=== PATIENT | female | born 1980 | race Native Hawaiian/Other Pacific Islander ===

== ENCOUNTER 2019-05-16 00:18 | Day surgery (SDC) | payer BC, SELFPAY ==
[2019-05-10 12:46] VITALS: BMI 33.7
--- NOTE | 2019-05-15 17:13 | WPDANESEPP ---
Anes - Eval Pre Procedure Procedure: Colonoscopy Operation Date: 05/16/19 07:30 Proposed Procedures p Screening Colonoscopy - Maulik Pruitt MD Date/Time: 05/15/19 17:13 Surgeon: George Pre Op Diagnosis: Family hx colon polyps Patient Data Age: 38 Gender: F Height: 5 ft 6 in Weight: 95 kg Allergies Allergy/AdvReac Type Severity Reaction Status Date / Time No Known Allergies Allergy Mild Verified 05/10/19 12:42 Home Medications Medication Instructions Recorded Confirmed Type lansoprazole 30 mg capsule,delayed 30 mg PO DAILY 02/15/19 05/10/19 History release multivitamin 1 cap PO DAILY 05/10/19 05/10/19 History Patient hx anesthesia problems: none Family hx anesthesia problems: none PMFSH Past Medical History Medical History Family history of colon cancer Irritable bowel syndrome with diarrhea Obesity Lexi-rectal abscess Surgical History Surgical History Bariatric surgery status H/O adenoidectomy Family History Family History Father Hypertension Grandparent Hypertension Carcinoma of colon Malignant neoplasm of prostate Other Family history of coronary artery disease Social History Social History Smoking status: Never smoker Alcohol intake: current Exam Day of Procedure 05/15/19 17:13
--- NOTE | 2019-05-16 06:39 | P.PNAN_ITS ---
Anes - Eval Final PreProcedure Day of Procedure 05/16/19 06:39 Patient weight: obese Heart: regular rate and rhythm Lungs: clear to auscultation Airway: Mallampati scale class 1 Neurological: alert and oriented Last oral intake: >/= 8 hours ASA classification: II Emergent: no Anesthetic plan: proceed Anesthesia type and monitoring: general GIVS and standard monitoring Informed Consent: The patient's anesthetic plan and its attendant risks and sebastian efits were discussed with the patient/family/POA. Questions were solicited and answers provided to the satisfaction of the patient/family/POA.
[2019-05-16] MEDS: LACTATED RINGERS 1,000 ML 150 ML IV CONT (06:46)
[2019-05-16 06:51] VITALS: BP 115/73; PULSE 57; RESP 16; TEMP 36.5; O2SAT 99; BMI 36.1
--- NOTE | 2019-05-16 07:47 | PM.HPGS ---
History of Present Illness History of Present Illness Consent: Risks, benefits, and alternatives have been discussed and questions answered. Patient agrees to proceed with procedure. Chief complaint: Family hx colon polyps Narrative: Estelle Klein is a 38 year old female here with ibs-d, never had a colonoscopy Review of Systems Constitutional: Constitutional: Denies headache(s) and Denies weakness Eyes: Eyes: Denies blurry vision ENT: Reports Normal hearing present, Denies headache(s) and Denies neck pain Cardiovascular: Cardiovascular: Denies chest pain and Denies dyspnea Respiratory: Respiratory: Denies dyspnea Gastrointestinal: Gastrointestinal: Reports no additional gastrointestinal complaints Genitourinary: Genitourinary: Denies dysuria Musculoskeletal: Musculoskeletal: Denies neck pain Integumentary/Breasts: Skin/Breast: Denies dry skin Neurologic: Reports Normal hearing present, Denies headache(s) and Denies weakness Psychiatric: Psychiatric: Denies anxiety Endocrine: Endocrine: Denies change in body appearance Hematologic/Lymphatic: Hematologic/Lymphatic: Denies easy bleeding Allergic/Immunologic: Allergic/Immunologic: Denies urticaria PMFSH Past Medical History Medical History Family history of colon cancer Irritable bowel syndrome with diarrhea Obesity Lexi-rectal abscess Surgical History Surgical History Bariatric surgery status H/O adenoidectomy Family History Family History Father Hypertension Grandparent Hypertension Carcinoma of colon Malignant neoplasm of prostate Other Family history of coronary artery disease Social History Social History Smoking status: Never smoker Alcohol intake: current Meds Home Medications and Allergies Home Medications Medication Instructions Recorded Confirmed Type lansoprazole 30 mg capsule,delayed 30 mg PO DAILY 02/15/19 05/10/19 History release multivitamin 1 cap PO DAILY 05/10/19 05/10/19 History Allergies Allergy/AdvReac Type Severity Reaction Status Date / Time No Known Allergies Allergy Mild Verified 05/10/19 12:42 Vital Signs Vital Signs - 24 hr 05/16/19 06:51 Temperature 97.7 F Pulse Rate 57 L Respiratory Rate 16 Blood Pressure 115/73 Pulse Oximetry 99 Exam Const: General: comfortable and no acute distress HENMT: General nose exam: Normal nares present Eyes: General: appearance normal, both eyes and all related structures Neck: Neck: no JVD Resp: Auscultation: clear to auscultation bilaterally Cardio: Rate: regular rate Rhythm: regular rhythm GI: Inspection: non-distended GI Palp: Yes Soft to palpation Skin: General skin exam: normal color Neuro: General: gait normal Speech: normal speech Extrem: General: normal to inspection Psych: Mental Status: mental status grossly normal Assessment and Plan Assessment and plan (1) Family history of colon cancer: Code(s): Z80.0 - Family history of malignant neoplasm of digestive organs Status: Acute Assessment and Plan: will proceed with colonoscopy (2) Irritable bowel syndrome with diarrhea: Code(s): K58.0 - Irritable bowel syndrome with diarrhea Status: Acute (3) Bariatric surgery status: Code(s): Z98.84 - Bariatric surgery status Status: Acute
[2019-05-16 07:52] VITALS: BP 111/68; PULSE 55; RESP 28; O2SAT 97
[2019-05-16 08:02] VITALS: BP 115/68; PULSE 59; RESP 19; O2SAT 98
[2019-05-16 08:12] VITALS: BP 112/78; PULSE 54; RESP 22; O2SAT 100
== END 2019-05-16 08:14 | disposition home or self-care (01) ==
PROVIDERS: PCP Family Medicine; Visit Provider Internal Medicine Gastroenterology
PROC: 0DJD8ZZ Inspection of Lower Intestinal Tract, Via Natural or Artificial Opening Endoscopic (ICD-10-PCS; CPT 45378; principal; 2019-05-16 07:30)
DX: K58.0 Irritable bowel syndrome with diarrhea (principal); D12.4 Benign neoplasm of descending colon; Z80.0 Family history of malignant neoplasm of digestive organs; Z98.84 Bariatric surgery status; E66.9 Obesity, unspecified; Z68.36 Body mass index [BMI] 36.0-36.9, adult
CPT/HCPCS: 45380; 88305; J2704; J7120

== ENCOUNTER 2020-07-12 09:37 | Outpatient (CLI) | payer OTHER, SELFPAY ==
--- NOTE | 2020-07-12 09:30 | ECG_ITS ---
Measurements Intervals Jeff Rate: 55 P: 53 MA: 134 QRS: 24 QRSD: 98 T: 29 QT: 382 QTc: 368 Interpretive Statements SINUS BRADYCARDIA INCOMPLETE RIGHT BUNDLE BRANCH BLOCK BASELINE ARTIFACT- I, II, III, AVR, AVL, AVF, V4-V6 BORDERLINE ECG Electronically Signed On 07-12-2020 12:06:18 CDT by Kana Luis D.O.
[2020-07-12 10:09] LABS: Albumin Level 4.3 g/dL (3.5-5.1)
[2020-07-12 10:19] LABS: Prealbumin 32.1 mg/dL (17.6-36.0)
[2020-07-12 10:43] LABS: Iron 103 ug/dL (37-170)
[2020-07-19 09:37] LABS: Vitamin B1 29 nmol/L (8-30)
== END 2020-07-12 09:38 | disposition home or self-care (01) ==
LOC: ANHSURGERY 09:38
PROVIDERS: Anesthesiology; PCP Family Medicine; Visit Provider Surgery Plastic and Reconstructive Surgery
DX: Z41.9 Encounter for procedure for purposes other than remedying health state, unspecified (principal); Z98.84 Bariatric surgery status; I45.10 Unspecified right bundle-branch block
CPT/HCPCS: 36415; 82040; 83540; 84134; 84425; 85014; 85018; 93005

== ENCOUNTER → 2020-07-16 04:01 | Outpatient (CLI) | payer OTHER, SELFPAY ==
[2020-07-16 19:03] LABS: SARS-CoV-2 RNA PCR Negative
== END ==
PROVIDERS: PCP Family Medicine; Visit Provider Surgery Plastic and Reconstructive Surgery
DX: Z01.812 Encounter for preprocedural laboratory examination (principal); Z20.822 Contact with and (suspected) exposure to COVID-19
CPT/HCPCS: C9803; U0003; U0005

== ENCOUNTER 2020-07-20 19:27 | Observation (INO) | payer OTHER, SELFPAY ==
[2020-07-04 13:55] VITALS: BMI 27.3
[2020-07-19] VITALS (12 sets, daily range): BP systolic 98–124; BP diastolic 44–73; PULSE 54–82; RESP 16–20; TEMP 36.3–37.5; O2SAT 97–100
[2020-07-19] MEDS: LACTATED RINGERS 1,000 ML 30 ML IV CONT ×2 (06:38→15:01)
[2020-07-19 06:46] LABS: Urine Cotinine NEGATIVE
--- NOTE | 2020-07-19 07:00 | WPDANESEPPF ---
Anes - Initial Pre Proc Eval Procedure: Operation Date: 07/19/20 07:30 Proposed Procedures p Bilateral Breast Augmentation - Ronnie Mosquera MD s Bilateral Breast Mastopexy - Ronnie Mosquera MD s Bilateral Brachioplasty - Ronnie Mosquera MD s Abdominoplasty - Ronnie Mosquera MD Date/Time: 07/19/20 07:00 Surgeon: Ronnie Mosquera MD Pre Op Diagnosis: Skin Laxity Patient Data Age: 39 Gender: F Height: 5 ft 6 in Weight: 77 kg Allergies Allergy/AdvReac Type Severity Reaction Status Date / Time No Known Allergies Allergy Mild Verified 07/04/20 13:53 Home Medications Medication Instructions Recorded Confirmed Type naltrexone 8 mg-bupropion 90 mg 2 tablet PO BID #360 tablet 06/14/20 07/04/20 Rx tablet,extended release carisoprodol 350 mg tablet 350 mg PO TID PRN #21 tablet 07/04/20 07/04/20 Rx docusate sodium 100 mg capsule 100 mg PO DAILY #14 cap 07/04/20 07/04/20 Rx multivitamin 1 tablet PO DAILY 07/04/20 07/04/20 History ondansetron HCl [Zofran] 4 mg PO Q8H PRN 07/04/20 07/04/20 History oxycodone-acetaminophen 5 mg-325 1 tablet PO Q6H PRN #15 tablet 07/04/20 07/04/20 Rx mg tablet esomeprazole magnesium 20 mg 20 mg PO DAILY #90 cap 07/15/20 Rx capsule,delayed release Laboratory Tests 07/19/20 06:28 Cotinine Negative Patient hx anesthesia problems: none Family hx anesthesia problems: none PMFSH Past Medical History Medical History Arthralgia of temporomandibular joint, unspecified side BMI 27.0-27.9,adult Dietary counseling and surveillance (10/01/16) Cristy Blas infection Family history of colon cancer Irritable bowel syndrome with diarrhea Low vitamin B12 level Low vitamin D level Obesity Lexi-rectal abscess Pre-operative clearance Vaginal discharge Surgical History Surgical History Bariatric surgery status H/O adenoidectomy Family History Family History Father Hypertension Grandparent Hypertension Carcinoma of colon Malignant neoplasm of prostate Mother No problems noted. Sibling No problems noted. Other Family history of coronary artery disease Social History Social History Years smoked: 20 Smoking status: Former smoker Tobacco type: cigarettes Second hand tobacco smoke exposure: No Smoking end date: 04/12/20 Alcohol intake: current Alcohol use details: TWICE/MONTH Substance use: never Substance use type: does not use Living arrangements: with family Additional occupation/education comments: provider Gender identity (if verbalized by the patient): Female Spiritual care concerns: No Anes - Eval Final PreProcedure Day of Procedure 07/19/20 07:00 Patient weight: obese Heart: regular rate and rhythm Lungs: clear to auscultation Airway: Mallampati scale class II Neurological: alert and oriented Last oral intake: >/= 8 hours ASA classification: II Emergent: no Anesthetic plan: proceed Anesthesia type and monitoring: general ETT and standard monitoring Informed Consent: The patient's anesthetic plan and its attendant risks and benefits were discussed with the patient/family/POA. Questions were solicited and answers provided to the satisfaction of the patient/family/POA.
--- NOTE | 2020-07-19 07:24 | WPDHPUPDATE1 ---
History and Physical Update Update Date/Time: 07/19/20 07:24 History and Physical has been reviewed, including an updated exam of the patient. There are NO changes in the patient's condition. Risks, benefits, and alternatives have been discussed and questions answered. Patient agrees to proceed with procedure.
--- NOTE | 2020-07-19 07:26 | PM.PROC ---
Procedure Note - Detailed Date of procedure: 07/19/20 Pre-op diagnosis: Skin Laxity Post-op diagnosis: same Procedure performed: 1. Bilateral brachioplasty 2. Bilateral augmentation mastopexy 3. Progressive tension abdominoplasty Description of procedure: Risks, benefits, alternatives were discussed in extensive detail. I want her to be very realistic about the risks involved as well as expectations. Made sure answered all of her questions to her satisfaction. I had a lengthy discussion about what we could and could not accomplish. Discussed DVT prophylaxis options. Discussed aftercare. Answered all of her questions to her satisfaction. She voiced understanding. She would like proceed. She was marked in the preoperative holding area in a standing position with her verification. Taken operating room on a table. Anesthesia was provided by anesthesiology and prepped and draped in a standard sterile fashion. Brachioplasty I verified my markings. Stab incisions were made. I used a tumescent solution tumesced the arm. Once adequate time for hemostasis I completed suction lipectomy using a modification of S.A.F.E. technique. I completely deep fat of the central portion and then using a cut as you go strip avulsion technique I removed the tissue stapling as we proceeded. This was closed using 2-0 Vicryl followed by 3-0 strata fix in a running subcuticular 4-0 Monocryl and Steri-Strips.. Augmentation mastopexy 1% lidocaine and 0.25% Marcaine with epinephrine was used anesthetize as a field block. Tegaderm nipple Cabrales were placed. A 15 blade used to make an incision just sueprior to the inframammary fold leave a de-epithelialized flap of tissue that would ultimately protect the T junction if there is breakdown. Dissection was continued at 45 degree angle until the chest wall as identified. I incised the pectoralis major along its inferior border and completely released the inferior border leaving the medial border intact. I created a subpectoral pocket in the appropriate dimensions based on our preoperative planning for the implant. I then copiously irrigated with saline solution and verified a strict hemostasis. Next the use a triple antibiotic and Betadine containing solution to irrigate the pocket. I washed my gloves with the triple antibiotic and Betadine solution. We washed the implant immediately upon opening it with this solution and only opened it when we needed it. I used implant funnel and no-touch technique. The implant was introduced into the pocket using the funnel. Having verified positioning of the implant this was closed using 2-0 Vicryl. I then tailor tacked the breast into place and placed her in a sitting position. Based on my preoperative markings intraoperative observations and measurements which were in full agreement I placed the nipple-areolar complex at 38 mm. Then placed supine. I de-epithelialized the superior pedicle. Resected the central tissue. I elevated medial and lateral mastopexy flaps with good thickness to protect viability. I copiously irrigated and verified strict hemostasis. I then closed using 2-0 PDS along the vertical and the IMF. This is followed by 3-0 Monocryl around the areola and vertically. 3-0 strata fix along the IMF. Final closure was running subcuticular 4-0 Monocryl and tissue glue. Abdominoplasty We had previously discussed just a transverse lower incision verses a [id number]. She understands with just a low transverse incision she will have a degree of lateral laxity. She is willing to accept this rather than the vertical scar. I placed the patient in a flexed position to verify the upper and lower markings would reach. I then placed her supine. A thorough abdominal examination was completed. Stab incisions were made and used tumescent solution. A 10 blade was used to make the upper incision. I continued dissection down to the level of fascia. Elevated just what was necessary for r
[2020-07-19] MEDS: LIDO 1%/EPINEPHRINE 1:100,000 50 ML VIAL 30 ML INFILTRATE (07:30)
[2020-07-19] MEDS: ceFAZolin 2 GM/D5W 50 ML 2 GM/50 ML BAG IVPB (07:30)
[2020-07-19] MEDS: ceFAZolin SODIUM 1 GM VIAL IV PUSH (11:37)
--- NOTE | 2020-07-19 12:32 | SUR.OPER ---
CHECKED OUT OF PYXSIS 100MCG FENTANYL FOR THIS PATIENT AND GIVEN TO DR. COLBY
--- NOTE | 2020-07-19 14:34 | SUR.OPER ---
urine:375cc, EBL:100cc
--- NOTE | 2020-07-19 14:44 | SUR.OPER ---
checked 1 dilaudid out of pyxsis for this patient and gave to pieter emmanuel decal decorator
[2020-07-19] MEDS: fentaNYL CITRATE INJ (*CRX) 100 MCG/2 ML VIAL 25 MCG IV PUSH ×4 (15:18→15:42)
--- NOTE | 2020-07-19 15:31 | SUR.PHASEI ---
02 removed at 1530.
[2020-07-19] MEDS: HYDROmorphone HCL INJ (*CRX) 1 MG/ML SYR 0.5 MG IV PUSH ×2 (16:10→16:27)
--- NOTE | 2020-07-19 16:47 | PC.NURSE ---
This patient, Estelle Klein, was received from PACU on 07/19/20 at 1647 per bed. Patient oriented to unit policies and routines
--- NOTE | 2020-07-19 16:47 | PC.NURSE ---
Pt came to OB2 room 277 with abdominal binder and surgical bra intact.
[2020-07-19] MEDS: LACTATED RINGERS 1,000 ML 125 ML IV CONT (17:41)
[2020-07-19] MEDS: carisoprodoL (*CRX) 350 MG TABLET PO ×2 (17:42→23:51)
[2020-07-19] MEDS: MORPHINE SULFATE (*CRX) 2 MG/ML INJ IV PUSH (17:42)
[2020-07-19] MEDS: DOCUSATE SODIUM 100 MG CAPSULE PO (20:14)
[2020-07-19] MEDS: oxyCODONE/ACETAMINOPHEN (*CRX) 5-325 MG TABLET PO (20:14)
[2020-07-19] MEDS: ENOXAPARIN 40 MG/0.4 ML SYRINGE SUB-Q (20:16)
[2020-07-20] VITALS (62 sets, daily range): BP systolic 74–123; BP diastolic 28–57; PULSE 82–121; RESP 16–20; TEMP 36.4–37.3; O2SAT 93–100
[2020-07-20] MEDS: oxyCODONE/ACETAMINOPHEN (*CRX) 5-325 MG TABLET PO ×4 (02:01→22:58)
[2020-07-20] MEDS: SIMETHICONE 80 MG TAB.CHEW ×3 (03:48→09:00)
[2020-07-20] MEDS: LACTATED RINGERS 1,000 ML 999 ML IV CONT (05:05)
[2020-07-20] MEDS: LACTATED RINGERS 1,000 ML 125 ML IV CONT ×3 (06:11→15:30)
[2020-07-20] MEDS: carisoprodoL (*CRX) 350 MG TABLET PO ×4 (06:12→23:54)
--- NOTE | 2020-07-20 06:47 | WPDPN ---
Progress Note: A&P Assessment and Plan (1) Skin laxity: Code(s): L57.4 - Cutis laxa senilis Status: Acute Assessment and Plan: Postop bilateral brachioplasty, augmentation mastopexy, abdominoplasty. She is having a degree of lightheadedness with pain. Also having decreased blood pressure. Will restart Gaytan catheter for fluid monitoring. Continue fluids. I see no evidence of DVT or PE. No evidence of cardiac event. No evidence of hematoma or other sites of bleeding. Will follow closely. (2) Breast ptosis: Code(s): N64.81 - Ptosis of breast Status: Acute (3) Micromastia: Code(s): N64.82 - Hypoplasia of breast Status: Acute (4) History of weight loss surgery: Code(s): Z98.84 - Bariatric surgery status Status: Acute (5) Irritable bowel syndrome with diarrhea: Code(s): K58.0 - Irritable bowel syndrome with diarrhea Status: Acute (6) GERD (gastroesophageal reflux disease): Code(s): K21.9 - Gastro-esophageal reflux disease without esophagitis Status: Acute Review of Systems Review of Systems: All systems reviewed & are unremarkable except as noted in HPI and below Exam Narrative: Exam Narrative: She has good color. Is alert. Oriented. Answering questions appropriately. Appears uncomfortable. Bilateral breasts are soft. No signs of infection. No hematoma. No seroma. Good color. Good capillary refill. Bilateral arms are soft. No signs of infection. No hematoma. No seroma good color. Good capillary refill. Abdomen is soft. No signs of infection. No hematoma. No seroma. Good color. Good capillary refill. No calf tenderness. Negative Homans. No evidence of acute abdomen. No rebound tenderness. Const: General: comfortable, no acute distress, alert and awake; No acute distress Orientation/consciousness: oriented to person HENMT: Head: normal to inspection Ears: external ears normal General nose exam: Normal external nose present Face and sinus: normal facial exam Eyes: General: appearance normal, both eyes and all related structures Periorbital: periorbital findings normal Eyelids: eyelids normal Conjunctivae: conjunctivae normal Neck: Neck: normal visual inspection Chest: Chest palpation & inspection: normal inspection of the chest Resp: Effort & Inspection: normal respiratory effort and able to speak in complete sentences GI: Inspection: normal to inspection Neuro: General: oriented to person Psych: Appearance: grossly normal Mental Status: mental status grossly normal Objective Data Vital Signs Vital Signs: Vital Signs - 24 hr 07/19/20 07:00 07/19/20 15:01 07/19/20 15:15 Temperature 36.3 C L 36.4 C Pulse Rate 72 82 64 Respiratory Rate 16 20 18 Blood Pressure 120/73 98/59 L Pulse Oximetry 99 100 100 07/19/20 15:30 07/19/20 15:45 07/19/20 16:00 Temperature Pulse Rate 58 L 61 54 L Respiratory Rate 18 18 19 Blood Pressure 114/63 121/55 L 111/51 L Pulse Oximetry 100 100 100 07/19/20 16:15 07/19/20 16:30 07/19/20 16:55 Temperature 36.3 C L Pulse Rate 54 L 55 L 55 L Respiratory Rate 19 16 18 Blood Pressure 117/57 L 122/56 L 124/44 L Pulse Oximetry 98 100 100 07/19/20 17:45 07/19/20 20:10 07/19/20 23:45 Temperature 37.1 C 37.5 C 36.9 C Pulse Rate 75 71 Respiratory Rate 16 18 Blood Pressure 122/59 L 119/53 L Pulse Oximetry 100 97 07/20/20 03:20 07/20/20 03:30 07/20/20 03:45 Temperature 36.8 C Pulse Rate 83 95 90 Respiratory Rate 16 16 18 Blood Pressure 85/43 L 95/42 L 103/41 L Pulse Oximetry 96 97 97 07/20/20 04:00 07/20/20 05:10 07/20/20 05:13 Temperature 36.4 C Pulse Rate 85 95 90 Respiratory Rate 18 16 Blood Pressure 106/57 L 86/38 L 79/35 L Pulse Oximetry 98 96 97 07/20/20 05:15 07/20/20 05:20 07/20/20 05:30 Temperature Pulse Rate 90 92 82 Respiratory Rate 16 Blood Pressure 83/30 L 90/37 L 94/32 L Pulse Oximetry 97 96 98
--- NOTE | 2020-07-20 07:18 | WPDPN ---
Progress Note: A&P Assessment and Plan (1) Skin laxity: Code(s): L57.4 - Cutis laxa senilis Status: Acute Assessment and Plan: Postop bilateral brachioplasty, augmentation mastopexy, abdominoplasty. She is responding to fluid (symptoms resolving as well as blood pressure improving). Will continue Gaytan and fluid for the next few hours and re-evaluate. If she continues to do well and is tolerating diet will discontinue Gaytan later this morning as well as Hep-Lock fluids. Re-evaluate for discharge later today. (2) Breast ptosis: Code(s): N64.81 - Ptosis of breast Status: Acute (3) Micromastia: Code(s): N64.82 - Hypoplasia of breast Status: Acute (4) History of weight loss surgery: Code(s): Z98.84 - Bariatric surgery status Status: Acute (5) Irritable bowel syndrome with diarrhea: Code(s): K58.0 - Irritable bowel syndrome with diarrhea Status: Acute (6) GERD (gastroesophageal reflux disease): Code(s): K21.9 - Gastro-esophageal reflux disease without esophagitis Status: Acute Review of Systems Review of Systems: All systems reviewed & are unremarkable except as noted in HPI and below Exam Narrative: Exam Narrative: Dressings were adjusted. She has good color. Is alert. Oriented. Answering questions appropriately. Appears uncomfortable. Bilateral breasts are soft. No signs of infection. No hematoma. No seroma. Good color. Good capillary refill. Bilateral arms are soft. No signs of infection. No hematoma. No seroma good color. Good capillary refill. Abdomen is soft. No signs of infection. No hematoma. No seroma. Good color. Good capillary refill. No calf tenderness. Negative Homans. No evidence of acute abdomen. No rebound tenderness. Objective Data Vital Signs Vital Signs: Vital Signs - 24 hr 07/19/20 15:01 07/19/20 15:15 07/19/20 15:30 Temperature 36.4 C Pulse Rate 82 64 58 L Respiratory Rate 20 18 18 Blood Pressure 98/59 L 114/63 Pulse Oximetry 100 100 100 07/19/20 15:45 07/19/20 16:00 07/19/20 16:15 Temperature Pulse Rate 61 54 L 54 L Respiratory Rate 18 19 19 Blood Pressure 121/55 L 111/51 L 117/57 L Pulse Oximetry 100 100 98 07/19/20 16:30 07/19/20 16:55 07/19/20 17:45 Temperature 36.3 C L 37.1 C Pulse Rate 55 L 55 L Respiratory Rate 16 18 Blood Pressure 122/56 L 124/44 L Pulse Oximetry 100 100 07/19/20 20:10 07/19/20 23:45 07/20/20 03:20 Temperature 37.5 C 36.9 C 36.8 C Pulse Rate 75 71 83 Respiratory Rate 16 18 16 Blood Pressure 122/59 L 119/53 L 85/43 L Pulse Oximetry 100 97 96 07/20/20 03:30 07/20/20 03:45 07/20/20 04:00 Temperature Pulse Rate 95 90 85 Respiratory Rate 16 18 18 Blood Pressure 95/42 L 103/41 L 106/57 L Pulse Oximetry 97 97 98 07/20/20 05:10 07/20/20 05:13 07/20/20 05:15 Temperature 36.4 C Pulse Rate 95 90 90 Respiratory Rate 16 16 Blood Pressure 86/38 L 79/35 L 83/30 L Pulse Oximetry 96 97 97 07/20/20 05:20 07/20/20 05:30 07/20/20 05:45 Temperature Pulse Rate 92 82 86 Respiratory Rate Blood Pressure 90/37 L 94/32 L 107/40 L Pulse Oximetry 96 98 95 07/20/20 06:00 Temperature Pulse Rate 95 Respiratory Rate 16 Blood Pressure 113/43 L Pulse Oximetry 97 Intake/Output Intake/Output: Intake & Output 07/17/20 07/18/20 07/19/20 07/20/20 23:59 23:59 23:59 23:59 Intake Total 1999 1700 Output Total 1000 Balance 1000 1700 Meds/Results Medications: Active Medications Generic Name Dose Route Start Last Admin Trade Name Freq PRN Reason Stop Dose Admin Carisoprodol 350 mg 07/19/20 18:00 07/20/20 06:12 Carisoprodol (*Crx) 350 Mg Tablet PO 350 mg Q6HR JULEE Administration Docusate Sodium 100 mg 07/19/20 21:00 07/19/20 20:14 Docusate Sodium 100 Mg Capsule PO 100 mg Q12HR JULEE Administration Enoxaparin Sodium 40 mg 07/19/20 21:00 07/19/20 20:16 Enoxaparin 40 Mg/0.4 M
--- NOTE | 2020-07-20 07:47 | WPDANESPN ---
Anes - Prog Note Post-Op Date/Time: 07/20/20 07:47 Cardiovascular status: normal Respiratory status: normal Airway patency: baseline Mental status: baseline Post-Op hydration status: normal Vital Signs: Last Vital Signs Temp 36.4 C 07/20/20 05:10 Pulse 95 07/20/20 06:00 Resp 16 07/20/20 06:00 BP 113/43 L 07/20/20 06:00 Pulse Ox 97 07/20/20 06:00 Pain Score (VAS): 7 I/O: Intake & Output 07/19/20 07/19/20 07/20/20 15:59 23:59 07:59 Intake Total 0 2000 2700 Output Total 100 900 Balance -100 1100 2700 Post-procedural complaints: none Patient Feedback: Patient satisfied with anesthetic care.
[2020-07-20] MEDS: PANTOPRAZOLE 40 MG TABLET PO (08:53)
[2020-07-20] MEDS: KETOROLAC 30 MG/ML VIAL (*BKC) (08:54)
[2020-07-20] MEDS: DOCUSATE SODIUM 100 MG CAPSULE PO ×2 (09:05→22:58)
[2020-07-20] MEDS: ENOXAPARIN 40 MG/0.4 ML SYRINGE SUB-Q (22:58)
[2020-07-21 01:25] VITALS: BP 122/46; PULSE 112; O2SAT 96
[2020-07-21 04:00] VITALS: BP 119/45; PULSE 93; O2SAT 98
[2020-07-21] MEDS: oxyCODONE/ACETAMINOPHEN (*CRX) 5-325 MG TABLET PO ×3 (05:02→17:17)
--- NOTE | 2020-07-21 07:00 | WPDPN ---
Progress Note: A&P Assessment and Plan (1) Skin laxity: Code(s): L57.4 - Cutis laxa senilis Status: Acute Assessment and Plan: Postop bilateral brachioplasty, augmentation mastopexy, abdominoplasty. She is doing much better today. Will discharge home. Follow up later this week. Today we had a lengthy discussion with her and her about the care. Went over what monitor for. Discussed what is an emergency and went to proceed to the ER/dial 911. Explained were available with any other questions. Answered all of their questions. They voiced understanding. I will see them back. (2) Breast ptosis: Code(s): N64.81 - Ptosis of breast Status: Acute (3) Micromastia: Code(s): N64.82 - Hypoplasia of breast Status: Acute (4) History of weight loss surgery: Code(s): Z98.84 - Bariatric surgery status Status: Acute (5) Irritable bowel syndrome with diarrhea: Code(s): K58.0 - Irritable bowel syndrome with diarrhea Status: Acute (6) GERD (gastroesophageal reflux disease): Code(s): K21.9 - Gastro-esophageal reflux disease without esophagitis Status: Acute Review of Systems Review of Systems: All systems reviewed & are unremarkable except as noted in HPI and below Exam Narrative: Exam Narrative: She has good color. Is alert. Oriented. Answering questions appropriately. Appears uncomfortable. Bilateral breasts are soft. No signs of infection. No hematoma. No seroma. Good color. Good capillary refill. Bilateral arms are soft. No signs of infection. No hematoma. No seroma good color. Good capillary refill. Abdomen is soft. No signs of infection. No hematoma. No seroma. Good color. Good capillary refill. No calf tenderness. Negative Homans. No evidence of acute abdomen. No rebound tenderness. Objective Data Vital Signs Vital Signs: Vital Signs - 24 hr 07/20/20 08:05 07/20/20 08:10 07/20/20 08:15 Temperature Pulse Rate 109 H 107 H 101 H Respiratory Rate 18 Blood Pressure 112/44 L 113/31 L 94/35 L Pulse Oximetry 99 99 97 07/20/20 08:20 07/20/20 08:25 07/20/20 08:30 Temperature Pulse Rate 95 90 91 Respiratory Rate Blood Pressure 74/33 L 82/30 L 90/36 L Pulse Oximetry 99 97 99 07/20/20 08:35 07/20/20 08:40 07/20/20 08:45 Temperature Pulse Rate 90 104 H 94 Respiratory Rate Blood Pressure 96/33 L 105/32 L 99/42 L Pulse Oximetry 98 95 99 07/20/20 08:50 07/20/20 08:55 07/20/20 09:00 Temperature Pulse Rate 88 97 104 H Respiratory Rate Blood Pressure 99/42 L 110/39 L 104/33 L Pulse Oximetry 98 98 96 07/20/20 09:05 07/20/20 09:10 07/20/20 09:15 Temperature Pulse Rate 96 100 98 Respiratory Rate Blood Pressure 102/42 L 102/37 L 105/36 L Pulse Oximetry 98 98 98 07/20/20 09:20 07/20/20 09:25 07/20/20 09:30 Temperature Pulse Rate 105 H 101 H 105 H Respiratory Rate Blood Pressure 111/34 L 110/45 L 98/43 L Pulse Oximetry 98 98 98 07/20/20 09:35 07/20/20 09:40 07/20/20 09:45 Temperature Pulse Rate 110 H 108 H 103 H Respiratory Rate Blood Pressure 105/33 L 110/33 L 108/34 L Pulse Oximetry 96 96 93 07/20/20 09:50 07/20/20 09:55 07/20/20 10:00 Temperature Pulse Rate 114 H 111 H 108 H Respiratory Rate Blood Pressure 107/28 L 106/46 L 108/49 L Pulse Oximetry 98 99 93 07/20/20 10:05 07/20/20 10:10 07/20/20 10:15 Temperature Pulse Rate 106 H 106 H 108 H Respiratory Rate Blood Pressure 97/34 L 97/37 L 97/36 L Pulse Oximetry 98 98 99 07/20/20 10:20 07/20/20 10:25 07/20/20 10:30 Temperature Pulse Rate 101 H 107 H 104 H Respiratory Rate Blood Pressure 91/38 L 104/35 L 112/34 L Pulse Oximetry 99 99 96 07/20/20 10:35 07/20/20 10:45 07/20/20 11:00 Temperature Pulse Rate 121 H 104 H 109 H Respiratory Rate Blood Pressure 97/45 L 100/36 L 98/32 L Pulse Oximetry 98 97 97 07/20/20 11:15 07/20/20 11
--- NOTE | 2020-07-21 07:13 | P.DS_ITS ---
DS: Admitting Diagnosis Admitting Diagnosis Admitting Diagnosis: Skin laxity DS: Discharge Diagnosis Discharge Diagnosis (1) Skin laxity: Code(s): L57.4 - Cutis laxa senilis Status: Acute Assessment and Plan: Doing very well after brachioplasty, augmentation mastopexy, progressive tension abdominoplasty. Will discharge home. (2) Breast ptosis: Code(s): N64.81 - Ptosis of breast Status: Acute (3) Micromastia: Code(s): N64.82 - Hypoplasia of breast Status: Acute DS: Summary Hospital Course Hospital Course: Patient underwent brachioplasty, augmentation mastopexy, progressive tension abdominoplasty. Postoperatively she had a degree of symptomatic hypotension. By postoperative day 2 her symptoms had improved. She was doing very well. Ambulating. Pain controlled. Blood pressure controlled. No additional episodes of lightheadedness. Will discharge home. Follow-up. Time Spent with Patient Time attestation: Total time spent providing and/or coordinating discharge services: 25 minutes Exam Narrative: Exam Narrative: She has good color. Is alert. Oriented. Answering questions appropriately. Appears uncomfortable. Bilateral breasts are soft. No signs of infection. No hematoma. No seroma. Good color. Good capillary refill. Bilateral arms are soft. No signs of infection. No hematoma. No seroma good color. Good capillary refill. Abdomen is soft. No signs of infection. No hematoma. No seroma. Good color. Good capillary refill. No calf tenderness. Negative Homans. No evidence of acute abdomen. No rebound tenderness. Discharge Plan Discharge Discharging Clinician: Ronnie Mosquera Anticipated Discharge Date/Time: 07/21/20 07:05 Patient Disposition: Home, Self-Care Activity: may shower Diet: regular Wound Care Instructions: other - see discharge instructions Discharge Instructions: POST OPERATIVE DISCHARGE INSTRUCTIONS: RONNIE MOSQUERA M.D. [facility] [address] [place] [address] * No driving for 24 hours after anesthesia and while you are taking pain medication. * Take all prescribed medication as directed * Diet as tolerated. * Begin gentle shoulder rolls and arm stretches 10 times per hour. * No lifting or activity that raises blood pressure for 48 hours. * Regular walking / ambulation. * No showering until directed to. * No pools or tubs for 2 weeks. * Call with any questions or concerns. * Slowly stand up straight as tolerated over 1 week. * No straining or lifting more than 20 pounds for 6 weeks. * You may shower. Do not take pain medication before showering as the comb ination of medication and heat may cause you to feel dizzy or pass out. Let soap and water run over your incisions. Do not scrub or directly wash your incision. Replace the surgical bra and wear it 23 hours per day. Replace binder and compression and wear 23 hours per day. If you have any questions or concerns, please call the office . If it is after hours you will be directed to the philosophy and religion instructor exchange. Shortness of breath, chest pain, or other medical emergency dial 911 / proceed to the Emergency Room. Stand Alone Forms: General Discharge Instructions
--- NOTE | 2020-07-21 07:13 | PM.DS ---
DS: Admitting Diagnosis Admitting Diagnosis Admitting Diagnosis: Skin laxity DS: Discharge Diagnosis Discharge Diagnosis (1) Skin laxity: Code(s): L57.4 - Cutis laxa senilis Status: Acute Assessment and Plan: Doing very well after brachioplasty, augmentation mastopexy, progressive tension abdominoplasty. Will discharge home. (2) Breast ptosis: Code(s): N64.81 - Ptosis of breast Status: Acute (3) Micromastia: Code(s): N64.82 - Hypoplasia of breast Status: Acute DS: Summary Hospital Course Hospital Course: Patient underwent brachioplasty, augmentation mastopexy, progressive tension abdominoplasty. Postoperatively she had a degree of symptomatic hypotension. By postoperative day 2 her symptoms had improved. She was doing very well. Ambulating. Pain controlled. Blood pressure controlled. No additional episodes of lightheadedness. Will discharge home. Follow-up. Time Spent with Patient Time attestation: Total time spent providing and/or coordinating discharge services: 25 minutes Exam Narrative: Exam Narrative: She has good color. Is alert. Oriented. Answering questions appropriately. Appears uncomfortable. Bilateral breasts are soft. No signs of infection. No hematoma. No seroma. Good color. Good capillary refill. Bilateral arms are soft. No signs of infection. No hematoma. No seroma good color. Good capillary refill. Abdomen is soft. No signs of infection. No hematoma. No seroma. Good color. Good capillary refill. No calf tenderness. Negative Homans. No evidence of acute abdomen. No rebound tenderness. Discharge Plan Discharge Discharging Clinician: Ronnie Mosquera Anticipated Discharge Date/Time: 07/21/20 07:05 Patient Disposition: Home, Self-Care Activity: may shower Diet: regular Wound Care Instructions: other - see discharge instructions Discharge Instructions: POST OPERATIVE DISCHARGE INSTRUCTIONS: RONNIE MOSQUERA M.D. [facility] [address] [place] [address] No driving for 24 hours after anesthesia and while you are taking pain medication. Take all prescribed medication as directed Diet as tolerated. Begin gentle shoulder rolls and arm stretches 10 times per hour. No lifting or activity that raises blood pressure for 48 hours. Regular walking / ambulation. No showering until directed to. No pools or tubs for 2 weeks. Call with any questions or concerns. Slowly stand up straight as tolerated over 1 week. No straining or lifting more than 20 pounds for 6 weeks. You may shower. Do not take pain medication before showering as the combination of medication and heat may cause you to feel dizzy or pass out. Let soap and water run over your incisions. Do not scrub or directly wash your incision. Replace the surgical bra and wear it 23 hours per day. Replace binder and compression and wear 23 hours per day. If you have any questions or concerns, please call the office . If it is after hours you will be directed to the reconciliation machine operator exchange. Shortness of breath, chest pain, or other medical emergency dial 911 / proceed to the Emergency Room. Stand Alone Forms: General Discharge Instructions Follow-up/Referrals: Ronnie Mosquera MD [Physician] - 1 Week Discharge Medications: New carisoprodol 350 mg Tablet 350 mg PO Q6HR Qty: 15 RF: 0 oxycodone-acetaminophen 5-325 mg Tablet 1 - 2 tablet PO Q6H PRN (Reason: Pain) Qty: 15 RF: 0 docusate sodium 100 mg Capsule 100 mg PO Q12HR Qty: 30 RF: 0 ondansetron HCl (PF) 4 mg/2 mL Solution 4 mg IV PUSH Q6H PRN (Reason: Nausea) Qty: 30 RF: 0 Continued multivitamin Tablet 1 tablet PO DAILY RF: 0 esomeprazole magnesium [Nexium 24HR] 20 mg capsule,delayed release(DR/EC) 20 mg PO DAILY Qty: 90 RF: 1 Discontinued docusate sodium [Colace] 100 mg capsule
[2020-07-21 09:15] VITALS: BP 119/42; PULSE 108; RESP 18; TEMP 37.2; O2SAT 98
[2020-07-21] MEDS: DOCUSATE SODIUM 100 MG CAPSULE PO (09:55)
[2020-07-21] MEDS: carisoprodoL (*CRX) 350 MG TABLET PO ×2 (09:55→16:06)
[2020-07-21 10:59] VITALS: BP 125/40; PULSE 111; RESP 18; TEMP 37.3; O2SAT 97
[2020-07-21] MEDS: PANTOPRAZOLE 40 MG TABLET PO (16:06)
--- NOTE | 2020-07-21 20:34 | PC.NURSE ---
1734 Dr. Mosquera called, message left and he promptly returned call; advised of pt's more stable condition, able to be up in chair and stand, but still reporting ligh-headedness; also that pt voided 450cc without difficulty, and pain well managed. Pt OK for discharge as ordered; pt to be seen in office on Wednesday, 4-14.
== END 2020-07-21 18:46 | disposition home or self-care (01) ==
LOC: ANHSURGERY 19:30 → ANHOB2 19:30
PROVIDERS: Admitting Provider Surgery Plastic and Reconstructive Surgery; PCP Family Medicine; Visit Provider Surgery Plastic and Reconstructive Surgery
PROC: (CPT 19325; principal; 2020-07-19 07:30)
PROC: (CPT 19316; 2020-07-19 07:30)
PROC: (CPT 15836; 2020-07-19 07:30)
PROC: (CPT 19325; 2020-07-19 07:30)
DX: Z41.1 Encounter for cosmetic surgery (principal); I95.81 Postprocedural hypotension; N64.82 Hypoplasia of breast; N64.81 Ptosis of breast; L57.4 Cutis laxa senilis; Z98.84 Bariatric surgery status; Z87.891 Personal history of nicotine dependence; E66.9 Obesity, unspecified; Z68.27 Body mass index [BMI] 27.0-27.9, adult; K58.0 Irritable bowel syndrome with diarrhea; K21.9 Gastro-esophageal reflux disease without esophagitis; Z79.899 Other long term (current) drug therapy
CPT/HCPCS: 19325; 19316; 15836; 15830; 15847; 80307; 99199; A9270; C9290; G0378; J0171; J0330; J0690; J1100; J1170; J1580; J1650; J1885; J2250; J2270; J2405; J2704; J3010; J7120

== ENCOUNTER 2020-07-22 17:29 | Outpatient (CLI) | payer BC, SELFPAY ==
[2020-07-22 18:20] LABS: Mean Corpuscular Hemoglobin 33.1 pg (26-34); Mean Corpuscular Volume 103.3 fl (80-100); Mean Platelet Volume 11.4 fl (7.4-10.4); Platelet Count Result 119 k/mm3 (150-375); Red Blood Count 1.21 M/mm3 (4.2-5.4); Red Cell Distribution Width 12.6 % (11.5-14.5); White Blood Count 12.2 K/mm3 (4.5-10.0)
[2020-07-22 18:28] LABS: Anion Gap 0 mmol/L (8-16); Blood Urea Nitrogen 12 mg/dL (7-17); Carbon Dioxide 30 mmol/L (22-30); Chloride 104 mmol/L (98-107); Estimated Glomerular Filt Rate > 60; Glucose 107 mg/dL (65-105); Potassium 4.3 mmol/L (3.4-5.0); Sodium 134 mmol/L (137-145)
[2020-07-22 18:48] LABS: Hematocrit 12.5 % (37.0-47.0)
== END 2020-07-22 17:30 | disposition home or self-care (01) ==
LOC: ANHLAB 17:33
PROVIDERS: PCP Family Medicine; Visit Provider Surgery Plastic and Reconstructive Surgery
DX: R42 Dizziness and giddiness (principal)
CPT/HCPCS: 36415; 80048; 85027; 85380

== ENCOUNTER 2020-07-22 19:27 | Observation (INO) | payer BC, SELFPAY ==
[2020-07-22] VITALS (8 sets, daily range): BP systolic 104–127; BP diastolic 51–65; PULSE 101–113; RESP 16–18; TEMP 37.4; O2SAT 97–100
--- NOTE | ~2020-07-22 | CT_ITS ---
EXAMINATION: CT abdomen pelvis w con DATE: 07/22/2020 21:58 INDICATION: Postoperative bleeding after tummy tuck and breast augmentation TECHNIQUE: Computed tomography (CT) of the abdomen and pelvis was performed with 100 cc Omnipaque 350 intravenous contrast. Automated exposure control and iterative reconstruction technique were employe d. Exam dose: 1232.76 mGy-cm total exam DLP. COMPARISON: None. FINDINGS: There is atelectasis at the dependent lung bases, greater on the left, with some left lower lobe air bronchograms. Status post bilateral augmentation mammoplasty with implants posterior to the pectoralis major muscle s and some expected postoperative adjacent subcutaneous emphysema. Normal heart size. No pericardial or pleural effusion. Postoperative change from tummy tuck procedure. There is extensive soft tissue infiltration of the subcutaneous adipose tissues of the abdominal and pelvic corley, extending into the proximal thighs. There are numerous areas of subcutaneous emphysema of left and right anterior and lateral abdominal wall. There is prominent hematoma along the infraumb ilical parasagittal area and particularly along the left anterior and lateral lower abdominal and pel carlos alberto corley, beginning slightly above the level of the left iliac crest. The liver, spleen, gallbladder, bile ducts, pancreas, pancreatic duct, and adrenal glands and kidneys are unremarkable. Normal caliber of the abdominal aorta. No intraperitoneal or retroperitoneal or pe lvic mass lesion or adenopathy or ascites. An IUD is noted within the uterus. Uterus and adnexal area s and urinary bladder are otherwise unremarkable. There is a prominent amount of fecal material in the colon but no evidence of bowel obstruction or in traperitoneal free air. No abnormal fluid collection is noted within the abdomen, retroperitoneum or pelvis. IMPRESSION: Hematoma of the abdominal wall along the midline and particularly the left lower and lat eral abdominal and pelvic corley Extensive soft tissue stranding within subcutaneous tissues of the abdominal and pelvic corley, proxim al thighs; subcutaneous emphysema of the abdominal and pelvic wall Status post tummy tuck procedure Status post bilateral augmentation mammoplasty No abnormal intra-abdominal or pelvic fluid collection. I reviewed the examination in my office with the performing surgeon shortly after completion of the C T abdomen pelvis procedure. Reviewed, dictated and finalized at [facility]. Reviewed, dictated and finalized at [facility]. IMPRESSION: Hematoma of the abdominal wall along the midline and particularly the left lower and lateral abdominal and pelvic corley Extensive soft tissue stranding within subcutaneous tissues of the abdominal an d pelvic corley, proximal thighs; subcutaneous emphysema of the abdominal and pe lvic wall Status post tummy tuck procedure Status post bilateral augmentation mammoplasty No abnormal intra-abdominal or pelvic fluid collection. I reviewed the examination in my office with the performing surgeon shortly aft er completion of the CT abdomen pelvis procedure.
--- NOTE | 2020-07-22 20:07 | ED.GENADULT ---
HPI - General Adult General Chief complaint: Recheck/Abnormal Lab/Rx <Ryley Chávez MD - Last Filed: 07/23/20 10:56> Stated complaint: low blood counts <Ryley Chávez MD - Last Filed: 07/23/20 10:56> Time Seen by Provider: 07/22/20 19:45 <Ryley Chávez MD - Last Filed: 07/23/20 10:56> History of Present Illness HPI narrative: Patient is a 39-year-old female who presents the ER with dizziness and low blood counts. Patient was discharged yesterday after being in the hospital for 2 days status post brachioplasty, abdominoplasty, and breast surgery. Patient is having dizziness when going from sitting to standing. She has extreme exertional shortness of breath without runny nose/sore throat/productive cough. She is afebrile. An outpatient lab draw found that her hemoglobin was 4. She denies any dark black stools that she has not yet had a bowel movement since having her surgery. She has had no hemorrhage from her wounds. She does have bruising extending across her lower abdomen and side around her incision. She reports chronic edema since being hospitalized receiving IV fluid. <Ryley Chávez MD - Last Filed: 07/23/20 10:56> Related Data Home medications: Home Medications Medication Instructions Recorded Confirmed multivitamin [Daily Multi-Vitamin] 1 tablet PO DAILY 07/04/20 07/23/20 <Ryley Chávez MD - Last Filed: 07/23/20 10:56> Allergies/adverse reactions: Allergies Allergy/AdvReac Type Severity Reaction Status Date / Time No Known Allergies Allergy Mild Verified 07/19/20 07:08 <Ryley Chávez MD - Last Filed: 07/23/20 10:56> Review of Systems Review of Systems: All systems reviewed & are unremarkable except as noted in HPI and below <Ryley Chávez MD - Last Filed: 07/23/20 10:56> Constitutional: Constitutional: Denies chills, Reports fatigue, Denies fever(s) and Reports weakness <Ryley Chávez MD - Last Filed: 07/23/20 10:56> ENT: Denies nasal congestion and Denies sore throat <Ryley Chávez MD - Last Filed: 07/23/20 10:56> Cardiovascular: Cardiovascular: Denies chest pain, Reports rapid heart rate (Races when exerting herself) and Denies radiating jaw, neck or arm pain <Ryley Chávez MD - Last Filed: 07/23/20 10:56> Respiratory: Respiratory: Denies cough, Reports dyspnea (With exertion not at rest) and Denies wheezing <Ryley Chávez MD - Last Filed: 07/23/20 10:56> Gastrointestinal: Gastrointestinal: Reports abdominal pain (Postoperative), Reports constipation, Denies diarrhea, Denies nausea and Denies vomiting <Ryley Chávez MD - Last Filed: 07/23/20 10:56> Genitourinary: Genitourinary: Denies nocturia, Denies dysuria and Denies flank pain <Ryley Chávez MD - Last Filed: 07/23/20 10:56> Comments: Malodorous urine that is dark <Ryley Chávez MD - Last Filed: 07/23/20 10:56> [facility] Past Medical History Medical History: Medical History Arthralgia of temporomandibular joint, unspecified side BMI 27.0-27.9,adult Dietary counseling and surveillance (10/01/16) Cristy Blas infection Family history of colon cancer Irritable bowel syndrome with diarrhea Low vitamin B12 level Low vitamin D level Obesity Lexi-rectal abscess Pre-operative clearance Vaginal discharge <Ryley Chávez MD - Last Filed: 07/23/20 10:56> Surgical History Surgical History: Surgical History Bariatric surgery status H/O adenoidectomy <Ryley Chávez MD - Last Filed: 07/23/20 10:56> Family History Family History: Family History (Updated 07/23/20 @ 00:00 by Zehra Brown RN) Father blood cancer Hypertension Malignant neoplasm of prostate Grandparent Carcinoma of colon Hypertension Malignant neoplasm of prostate Mother No problems noted. Sibling No pr
[2020-07-22 20:35] LABS: Basophils Percent Auto 0.2 % (0.2-1.2); Eosinophils Percent Auto 0.1 % (0-4.4); Immature Granulocyte Absolute 0.13 K/mm3 (0.00-0.031); Immature Granulocyte Percent A 1.1 % (0-0.5); Lymphocytes Absolute Auto 1.38 K/mm3 (0.9-3.2); Lymphocytes Percent Auto 11.7 % (18.3-44.2); Mean Corpuscular Hemoglobin 33.6 pg (26-34); Mean Corpuscular Volume 105.2 fl (80-100); Mean Platelet Volume 10.5 fl (7.4-10.4); Monocytes Absolute Auto 0.8 K/mm3 (0.1-0.6); Neutrophils Absolute Auto 9.4 K/mm3 (1.3-6.7); Neutrophils Percent Auto 79.9 % (45.5-73.1); Nucleated Red Blood Cells Perc 0.3 % (0.0-0.2); Platelet Count Result 214 k/mm3 (150-375); Red Blood Count 1.16 M/mm3 (4.2-5.4); Red Cell Distribution Width 12.5 % (11.5-14.5); White Blood Count 11.8 K/mm3 (4.5-10.0)
[2020-07-22 20:40] LABS: Hematocrit 12.2 % (37.0-47.0); Hemoglobin 3.9 g/dL (12.0-15.0)
[2020-07-22 20:46] LABS: INR 0.9; Partial Thromboplastin Time 24.6 SECONDS (22.3-36.8); Prothrombin Time 12.3 Seconds (11.1-14.7)
[2020-07-22] MEDS: fentaNYL CITRATE INJ (*CRX) 100 MCG/2 ML VIAL 50 MCG IV PUSH (21:00)
--- NOTE | 2020-07-22 21:10 | PM.IMHP ---
H&P: HPI History of Present Illness Date/Time: 07/22/20 21:10 She is a very pleasant 39-year-old female who underwent brachioplasty, augmentation mastopexy, and abdominoplasty with me on 07/19/2020. Patient called today that she was having some persistent lightheadedness whenever she was standing or doing activities. Also she took a shower and had a little bit a lightheadedness there. As such ordered labs. Hemoglobin returned as 4. I immediately had her proceed to the emergency room where I met her. She was evaluated by the emergency room staff. Repeat hemoglobin was 3.9. She says she feels a little lightheaded when her heads up but otherwise no shortness of breath. No chest pain. No calf tenderness. She has not noticed any unusual swelling. No additional ecchymoses. CT Scan reviewed in person with radiologist: IMPRESSION: Hematoma of the abdominal wall along the midline and particularly the left lower and lateral abdominal and pelvic corley. No evidence of active bleeding. Chief Complaint: Lightheadedness Review of Systems Review of Systems: All systems reviewed & are unremarkable except as noted in HPI and below Cardiovascular: Cardiovascular: Denies chest pain, Denies chest pain at rest, Denies chest pain with activity, Reports lightheadedness, Denies dyspnea, Denies dyspnea on exertion and Denies orthopnea Respiratory: Respiratory: Denies cough and Denies dyspnea Gastrointestinal: Comments: No bowel movement since surgery. Genitourinary: Genitourinary: Reports no additional female genitourinary complaints Musculoskeletal: Musculoskeletal: Reports no additional musculoskeletal complaints, Denies muscle cramps and Denies numbness Integumentary/Breasts: Skin/Breast: Reports system reviewed and no additional complaints, except as docu Neurologic: Denies behavioral changes, Denies confusion and Denies syncope [facility] Past Medical History Medical History Arthralgia of temporomandibular joint, unspecified side BMI 27.0-27.9,adult Dietary counseling and surveillance (10/01/16) Cristy Blas infection Family history of colon cancer Irritable bowel syndrome with diarrhea Low vitamin B12 level Low vitamin D level Obesity Lexi-rectal abscess Pre-operative clearance Vaginal discharge Surgical History Surgical History Bariatric surgery status H/O adenoidectomy Family History Family History Father Hypertension Grandparent Hypertension Carcinoma of colon Malignant neoplasm of prostate Mother No problems noted. Sibling No problems noted. Other Family history of coronary artery disease Social History Social History Years smoked: 20 Smoking status: Former smoker Tobacco type: cigarettes Second hand tobacco smoke exposure: No Smoking end date: 04/12/20 Alcohol intake: current Substance use: never Substance use type: does not use Additional occupation/education comments: provider Gender identity (if verbalized by the patient): Female Spiritual care concerns: No Meds Home Medications and Allergies Home Medications Medication Instructions Recorded Confirmed Type multivitamin 1 tablet PO DAILY 07/04/20 07/19/20 History esomeprazole magnesium 20 mg 20 mg PO DAILY #90 cap 07/15/20 07/19/20 Rx capsule,delayed release carisoprodol 350 mg PO Q6HR #15 tablet 07/21/20 Rx docusate sodium 100 mg PO Q12HR #30 cap 07/21/20 Rx ondansetron HCl (PF) 4 mg IV PUSH Q6H PRN #30 ml 07/21/20 Rx oxycodone-acetaminophen 1 - 2 tablet PO Q6H PRN #15 tablet 07/21/20 Rx Allergies Allergy/AdvReac Type Severity Reaction Status Date / Time No Known Allergies Allergy Mild Verified 07/19/20 07:08 Vital Signs Vital Signs - 24 hr 07/22/20 19:35 07/22/20 20:2
[2020-07-22 21:36] LABS: Estimated CRCL calculation 99 ml/min; Estimated Glomerular Filt Rate > 60
[2020-07-22 22:16] LABS: Anion Gap -1 mmol/L (8-16); Blood Urea Nitrogen 11 mg/dL (7-17); Calcium 8.8 mg/dL (8.4-10.2); Carbon Dioxide 31 mmol/L (22-30); Chloride 103 mmol/L (98-107); Estimated CRCL calculation 114 ml/min; Estimated Glomerular Filt Rate > 60; Glucose 104 mg/dL (65-105); Potassium 3.8 mmol/L (3.4-5.0); Sodium 133 mmol/L (137-145)
--- NOTE | 2020-07-22 23:32 | PC.NURSE ---
RN verified with MD Mosquera that he wants the patient to placed on a Medical Surgical floor with a hemoglobin of 3.9, stated he felt that she was very stable and only getting symptoms when standing.
[2020-07-23] VITALS (28 sets, daily range): BP systolic 96–122; BP diastolic 45–63; PULSE 84–105; RESP 16–21; TEMP 36.2–37.8; O2SAT 95–99
--- NOTE | 2020-07-23 00:04 | ADMGEN ---
This patient, Estelle Klein, was admitted to [facility] Surg Room 313-01. Patient/family oriented to hospital policies and general routines including ID bracelet, bed and alarms, visiting hours, pain management, procedures, bathroom and other care routines, personal items, smoking policy, room service/diet, and visiting hours. Information on how to activate the Rapid Response Team has been discussed. Patient/Family are encouraged to report perceived risks to care and to ask questions if they do not understand what they are told or what they should do.
[2020-07-23] MEDS: carisoprodoL (*CRX) 350 MG TABLET PO ×5 (00:21→23:48)
[2020-07-23] MEDS: oxyCODONE/ACETAMINOPHEN (*CRX) 5-325 MG TABLET PO ×4 (01:08→21:21)
--- NOTE | 2020-07-23 03:17 | PC.NURSE ---
MD Manzano notified that the patient had temperatures before the blood transfusion started and the most recent temperature is 100.1, stated to order 650mg tylenol once.
[2020-07-23] MEDS: ACETAMINOPHEN 325 MG TABLET 650 MG PO (03:40)
[2020-07-23] MEDS: MORPHINE SULFATE (*CRX) 2 MG/ML INJ IV PUSH ×2 (04:09→20:02)
[2020-07-23] MEDS: TUBING, BLOOD PLUM PUMP TUBING 1 EACH XX (06:45)
--- NOTE | 2020-07-23 07:23 | WPDPN ---
Progress Note: A&P Assessment and Plan (1) Anemia: Qualifiers: Other causes of anemia: acute posthemorrhagic Code(s): D64.9 - Anemia, unspecified Status: Acute Assessment and Plan: She looks much improved today. Asymptomatic. I see no evidence of active bleeding. Will recheck labs. Ambulate today. Will monitor. (2) Skin laxity: Code(s): L57.4 - Cutis laxa senilis Status: Acute Assessment and Plan: Postop bilateral brachioplasty, augmentation mastopexy, abdominoplasty. She is doing much better today. Will discharge home. Follow up later this week. Today we had a lengthy discussion with her and her about the care. Went over what monitor for. Discussed what is an emergency and went to proceed to the ER/dial 911. Explained were available with any other questions. Answered all of their questions. They voiced understanding. I will see them back. (3) Breast ptosis: Code(s): N64.81 - Ptosis of breast Status: Acute (4) Micromastia: Code(s): N64.82 - Hypoplasia of breast Status: Acute (5) History of weight loss surgery: Code(s): Z98.84 - Bariatric surgery status Status: Acute (6) Irritable bowel syndrome with diarrhea: Code(s): K58.0 - Irritable bowel syndrome with diarrhea Status: Acute (7) GERD (gastroesophageal reflux disease): Code(s): K21.9 - Gastro-esophageal reflux disease without esophagitis Status: Acute Review of Systems Review of Systems: All systems reviewed & are unremarkable except as noted in HPI and below Exam Narrative: Exam Narrative: Oral mucosa has significant improvement in color. Bilateral arms are soft. No signs of infection. No hematoma. No seroma. Bilateral breasts are soft. No signs of infection. No hematoma. No seroma. Healing well. Abdomen has minimal ecchymosis. She soft throughout. I am unable to appreciate hematoma on physical exam. No calf tenderness. Negative Homann's Const: General: comfortable, no acute distress, alert and awake; No acute distress Orientation/consciousness: oriented to person HENMT: Head: normal to inspection Ears: external ears normal General nose exam: Normal external nose present Face and sinus: normal facial exam Eyes: General: appearance normal, both eyes and all related structures Periorbital: periorbital findings normal Eyelids: eyelids normal Neck: Neck: normal visual inspection Resp: Effort & Inspection: normal respiratory effort and able to speak in complete sentences Cardio: Jugular venous distension: no JVD Neuro: General: oriented to person Psych: Appearance: grossly normal Mental Status: mental status grossly normal Objective Data Vital Signs Vital Signs: Vital Signs - 24 hr 07/22/20 19:35 07/22/20 20:25 07/22/20 20:30 Temperature 37.4 C Pulse Rate 105 H 113 H 105 H Respiratory Rate 16 16 18 Blood Pressure 127/65 104/53 L 104/51 L Pulse Oximetry 97 100 100 07/22/20 20:45 07/22/20 21:00 07/22/20 21:15 Temperature Pulse Rate 101 H 104 H 103 H Respiratory Rate 16 18 16 Blood Pressure 117/54 L 119/52 L 118/57 L Pulse Oximetry 100 100 100 07/22/20 22:43 07/22/20 23:38 07/23/20 00:00 Temperature Pulse Rate 104 H 104 H 98 Respiratory Rate 18 16 Blood Pressure 115/57 L 117/58 L Pulse Oximetry 100 100 07/23/20 00:24 07/23/20 00:49 07/23/20 01:49 Temperature 37.7 C H 37.4 C 37.4 C Pulse Rate 96 100 105 H Respiratory Rate 16 20 18 Blood Pressure 107/47 L 100/45 L 105/46 L Pulse Oximetry 98 95 95 07/23/20 02:49 07/23/20 03:40 07/23/20 03:49 Temperature 37.8 C H 37.8 C H 37.4 C Pulse Rate 98 97 Respiratory Rate 17 17 Blood Pressure 98/50 L 104/53 L Pulse Oximetry 96 96 07/23/20 04:00 07/23/20 04:13 07/23/20 04:29 Temperature 37.4 C 37.2 C Pulse Rate 95 91 95 Respiratory Rate 16 16 Blood Pressure 107/56 L 110/63 Pulse Oximetry 96 96
[2020-07-23 08:16] LABS: Basophils Percent Auto 0.3 % (0.2-1.2); Eosinophils Percent Auto 0.3 % (0-4.4); Immature Granulocyte Absolute 0.18 K/mm3 (0.00-0.031); Immature Granulocyte Percent A 1.5 % (0-0.5); Lymphocytes Absolute Auto 2.14 K/mm3 (0.9-3.2); Lymphocytes Percent Auto 17.9 % (18.3-44.2); Mean Corpuscular HGB Conc 32.5 g/dl (32-36); Mean Corpuscular Volume 98.5 fl (80-100); Mean Platelet Volume 9.6 fl (7.4-10.4); Monocytes Percent Auto 8.7 % (2.6-8.5); Neutrophils Absolute Auto 8.5 K/mm3 (1.3-6.7); Neutrophils Percent Auto 71.3 % (45.5-73.1); Nucleated Red Blood Cells Perc 0.2 % (0.0-0.2); Platelet Count Result 209 k/mm3 (150-375); Red Blood Count 2.03 M/mm3 (4.2-5.4); Red Cell Distribution Width 14.6 % (11.5-14.5)
[2020-07-23 08:17] LABS: Hemoglobin 6.5 g/dL (12.0-15.0)
[2020-07-23 08:21] LABS: Anion Gap -1 mmol/L (8-16); Blood Urea Nitrogen 10 mg/dL (7-17); Calcium 9.1 mg/dL (8.4-10.2); Carbon Dioxide 33 mmol/L (22-30); Chloride 104 mmol/L (98-107); Estimated CRCL calculation 99 ml/min; Estimated Glomerular Filt Rate > 60; Glucose 86 mg/dL (65-105); Potassium 4.1 mmol/L (3.4-5.0); Sodium 136 mmol/L (137-145)
[2020-07-23] MEDS: DOCUSATE SODIUM 100 MG CAPSULE PO ×2 (08:46→20:04)
[2020-07-23 20:22] LABS: Hematocrit 26.1 % (37.0-47.0); Hemoglobin 8.5 g/dL (12.0-15.0)
[2020-07-23 22:50] LABS: Add Urine Microscopic? YES; Appearance Urine Cloudy (Clear); Bacteria Urine 4+ /hpf; Bilirubin Urine Negative (Negative); Calcium Oxalate Crystals Urine Present /hpf; Color Urine Amber (Yellow); Glucose Urine UA Negative (Negative); Ketones Urine Negative (Negative); Leukocyte Esterase Ur 1+ LEU/UL (Negative); Mucus Urine Heavy /lpf; Nitrate Urine Positive (Negative); Protein Urine 1+ mg/dL (Negative); RBC Urine 0-2 /hpf (0-2); Squamous Epithelial Cell Urine Moderate /hpf (Few); WBC Urine 31-50 /hpf
[2020-07-23 22:59] LABS: Blood Urine Negative (Negative); Specific Grav Ur 1.033 (1.001-1.035)
[2020-07-24] MEDS: oxyCODONE/ACETAMINOPHEN (*CRX) 5-325 MG TABLET PO ×2 (03:10→09:18)
[2020-07-24] MEDS: carisoprodoL (*CRX) 350 MG TABLET PO (05:52)
[2020-07-24 06:00] VITALS: BP 118/51; PULSE 72; RESP 16; TEMP 36.1; O2SAT 93
--- NOTE | 2020-07-24 07:14 | WPDPN ---
Progress Note: A&P Assessment and Plan (1) Anemia: Qualifiers: Other causes of anemia: acute posthemorrhagic Code(s): D64.9 - Anemia, unspecified Status: Acute Assessment and Plan: Much improved. Asymptomatic. Her H&H is holding stable. Will discharge home. Follow up with me in office tomorrow. She has a full list of instructions. Understands what to monitor for. She is going to call with any questions or concerns. (2) Skin laxity: Code(s): L57.4 - Cutis laxa senilis Status: Acute Assessment and Plan: Postop bilateral brachioplasty, augmentation mastopexy, abdominoplasty. Follow-up tomorrow. As above (3) Breast ptosis: Code(s): N64.81 - Ptosis of breast Status: Acute (4) Micromastia: Code(s): N64.82 - Hypoplasia of breast Status: Acute (5) History of weight loss surgery: Code(s): Z98.84 - Bariatric surgery status Status: Acute (6) Irritable bowel syndrome with diarrhea: Code(s): K58.0 - Irritable bowel syndrome with diarrhea Status: Acute (7) GERD (gastroesophageal reflux disease): Code(s): K21.9 - Gastro-esophageal reflux disease without esophagitis Status: Acute Review of Systems Review of Systems: All systems reviewed & are unremarkable except as noted in HPI and below Exam Narrative: Exam Narrative: Oral mucosa has significant improvement in color. Bilateral arms are soft. No signs of infection. No hematoma. No seroma. Bilateral breasts are soft. No signs of infection. No hematoma. No seroma. Healing well. Abdomen has minimal ecchymosis. She soft throughout. Good color and capillary refill. No calf tenderness. Negative Homann's Const: General: comfortable, no acute distress, alert and awake; No acute distress Orientation/consciousness: oriented to person HENMT: Head: normal to inspection Ears: external ears normal General nose exam: Normal external nose present Face and sinus: normal facial exam Eyes: General: appearance normal, both eyes and all related structures Periorbital: periorbital findings normal Eyelids: eyelids normal Neck: Neck: normal visual inspection Resp: Effort & Inspection: normal respiratory effort and able to speak in complete sentences Cardio: Jugular venous distension: no JVD Neuro: General: oriented to person Psych: Appearance: grossly normal Mental Status: mental status grossly normal Objective Data Vital Signs Vital Signs: Vital Signs - 24 hr 07/23/20 07:29 07/23/20 08:00 07/23/20 10:07 Temperature 37.2 C Pulse Rate 84 95 Respiratory Rate 18 18 Blood Pressure 118/62 Pulse Oximetry 97 97 97 07/23/20 11:35 07/23/20 11:55 07/23/20 12:55 Temperature 37.3 C 37.1 C 36.2 C L Pulse Rate 105 H 101 H 93 Respiratory Rate 18 18 18 Blood Pressure 111/48 L 107/47 L 122/51 L Pulse Oximetry 96 96 99 07/23/20 13:55 07/23/20 15:20 07/23/20 15:35 Temperature 36.9 C 36.7 C 36.7 C Pulse Rate 98 96 98 Respiratory Rate 18 21 H 19 Blood Pressure 111/53 L 114/62 105/58 L Pulse Oximetry 98 99 98 07/23/20 16:35 07/23/20 17:35 07/23/20 18:35 Temperature 36.9 C 37.2 C 37.3 C Pulse Rate 92 90 95 Respiratory Rate 20 17 18 Blood Pressure 111/52 L 107/58 L 109/57 L Pulse Oximetry 99 97 96 07/23/20 22:00 07/23/20 22:53 07/24/20 06:00 Temperature 36.6 C 36.1 C L Pulse Rate 88 91 72 Respiratory Rate 18 16 Blood Pressure 112/54 L 118/51 L Pulse Oximetry 96 97 93 Intake/Output Intake/Output: Intake & Output 07/21/20 07/22/20 07/23/20 07/24/20 23:59 23:59 23:59 23:59 Intake Total 3250 400 Output Total 400 Balance 2850 400 Meds/Results Medications: Active Medications Generic Name Dose Route Start Last Admin Trade Name Jessica PRN Reason Stop Dose Admin Carisoprodol 350 mg 07/23/20 00:00 07/24/20 05:52 Carisoprodol (*Crx) 350 Mg Tablet PO 350 mg Q6HR JULEE Administration Docusate
--- NOTE | 2020-07-24 07:18 | PM.DS ---
DS: Admitting Diagnosis Admitting Diagnosis Admitting Diagnosis: s/p brachioplasty, augmentation mastopexy, abdominoplasty with postoperative bleeding/anemia. DS: Discharge Diagnosis Discharge Diagnosis (1) Anemia: Qualifiers: Other causes of anemia: acute posthemorrhagic Code(s): D64.9 - Anemia, unspecified Status: Acute (2) History of cosmetic surgery: Code(s): Z98.890 - Other specified postprocedural states Status: Acute DS: Summary Hospital Course Hospital Course: She was postoperative day 3 from brachioplasty, augmentation mastopexy, abdominoplasty. She called having significant lightheadedness. We obtained labs in her hemoglobin returned as 4. She was seen by me and the emergency room physician. CT scan of the abdomen that showed fluid collection on the left side of the abdomen although unable to appreciate on physical examination. No active extravasation / bleeding noted. She was transfused 4 units of blood. On post admission day 2 her previous lightheadedness has resolved. She is feeling much improved. Her hemoglobin is holding stable. There is no evidence of active bleeding. Abdomen is soft. Discharge home. Will follow up tomorrow. Time Spent with Patient Time attestation: Total time spent providing and/or coordinating discharge services: 25 minutes Exam Narrative: Exam Narrative: Oral mucosa has significant improvement in color. Bilateral arms are soft. No signs of infection. No hematoma. No seroma. Bilateral breasts are soft. No signs of infection. No hematoma. No seroma. Healing well. Abdomen has minimal ecchymosis. She soft throughout. Good color and capillary refill. No calf tenderness. Negative Homann's Const: General: comfortable, no acute distress, alert and awake; No acute distress Orientation/consciousness: oriented to person HENMT: Head: normal to inspection Ears: external ears normal General nose exam: Normal external nose present Face and sinus: normal facial exam Eyes: General: appearance normal, both eyes and all related structures Periorbital: periorbital findings normal Eyelids: eyelids normal Neck: Neck: normal visual inspection Resp: Effort & Inspection: normal respiratory effort and able to speak in complete sentences Cardio: Jugular venous distension: no JVD Neuro: General: oriented to person Psych: Appearance: grossly normal Mental Status: mental status grossly normal DS: Data Data Completed and Pending Labs on day of discharge: Labs from last 24 hours 07/23/20 07/23/20 07/23/20 21:48 20:11 08:02 WBC RBC Hgb 8.5 L Hct 26.1 L MCV MCH MCHC RDW Plt Count MPV Immature Gran % (Auto) Neut % (Auto) Lymph % (Auto) [place] % (Auto) Eos % (Auto) Baso % (Auto) Lymph # (Auto) [place] # (Auto) Eos # (Auto) Baso # (Auto) Abs Immat Gran (auto) Absolute Neuts (auto) Absolute Nucleated RBC Nucleated RBC % Sodium 136 L Potassium 4.1 Chloride 104 Carbon Dioxide 33 H Anion Gap -1 L BUN 10 Creatinine 0.70 Estim Creat Clear Calc 99 Estimated GFR > 60 Glucose 86 Calcium 9.1 Urine Color Rakel Urine Appearance Cloudy H Urine pH 6.0 Ur Specific [place] 1.033 Urine Protein 1+ H Urine Glucose (UA) Negative Urine Ketones Negative Ur Blood (Man) Negative Urine Nitrate Positive H Urine Bilirubin Negative Urine Urobilinogen 4.0 H Leukocyte Esterase Rfl 1+ H Urine RBC 0-2 Urine WBC 31-50 H Ur Squamous Epith Cells Moderate H Calcium Oxalate Crystal Present Urine Bacteria 4+ H Urine Mucus Heavy H Blood Type Antibody Screen Crossmatch 07/23/20 07/22/20 08:02 21:59 WBC 12.0 H RBC 2.03 L Hgb 6.5 L* Hct 20.0 L* MCV 98.5 D MCH 32.0 MCHC 32.5 RDW 14.6 H Plt Count 209 MPV 9.6 Immature Gran % (Auto) 1.5 H Neut % (Auto) 71.3
[2020-07-24 08:06] VITALS: PULSE 91; O2SAT 97
[2020-07-24] MEDS: PANTOPRAZOLE 40 MG TABLET PO (09:16)
[2020-07-24] MEDS: DOCUSATE SODIUM 100 MG CAPSULE PO (09:16)
== END 2020-07-24 10:05 | disposition home or self-care (01) ==
LOC: ANHED 23:40 → ANH3MEDSUR 23:53
PROVIDERS: Emergency Medicine; Admitting Provider Surgery Plastic and Reconstructive Surgery; Emergency Provider Emergency Medicine; PCP Surgery Plastic and Reconstructive Surgery; Visit Provider Surgery Plastic and Reconstructive Surgery
DX: D64.9 Anemia, unspecified (principal); R42 Dizziness and giddiness; K21.9 Gastro-esophageal reflux disease without esophagitis; K58.0 Irritable bowel syndrome with diarrhea; Z87.891 Personal history of nicotine dependence; Z98.84 Bariatric surgery status; Z86.16 Personal history of COVID-19
CPT/HCPCS: 36415; 36430; 74177; 80048; 81001; 85014; 85018; 85025; 85610; 85730; 86850; 86900; 86901; 86920; 87077; 87086; 87088; 87186; 96374; 96375; 96376; 99285; A9270; G0378; J2270; J3010; P9016; Q9967

== ENCOUNTER 2020-07-25 11:23 | Outpatient (CLI) | payer BC, SELFPAY ==
[2020-07-25 11:56] LABS: Anion Gap 4 mmol/L (8-16); Blood Urea Nitrogen 15 mg/dL (7-17); Calcium 9.6 mg/dL (8.4-10.2); Carbon Dioxide 28 mmol/L (22-30); Chloride 105 mmol/L (98-107); Estimated Glomerular Filt Rate > 60; Glucose 86 mg/dL (65-105); Potassium 4.2 mmol/L (3.4-5.0); Sodium 137 mmol/L (137-145)
[2020-07-25 12:59] LABS: Hematocrit 26.3 % (37.0-47.0); Hemoglobin 8.7 g/dL (12.0-15.0); Mean Corpuscular HGB Conc 33.1 g/dl (32-36); Mean Corpuscular Hemoglobin 30.6 pg (26-34); Mean Corpuscular Volume 92.6 fl (80-100); Mean Platelet Volume 10.3 fl (7.4-10.4); Platelet Count Result 275 k/mm3 (150-375); Red Blood Count 2.84 M/mm3 (4.2-5.4); White Blood Count 11.4 K/mm3 (4.5-10.0)
== END 2020-07-25 11:24 | disposition home or self-care (01) ==
LOC: ANHLAB 11:24
PROVIDERS: PCP Family Medicine; Visit Provider Surgery Plastic and Reconstructive Surgery
DX: D64.9 Anemia, unspecified (principal)
CPT/HCPCS: 36415; 80048; 85027

== ENCOUNTER 2020-07-29 10:55 | Outpatient (CLI) | payer BC, SELFPAY ==
[2020-07-29 11:27] LABS: Hematocrit 30.1 % (37.0-47.0); Hemoglobin 9.2 g/dL (12.0-15.0); Mean Corpuscular HGB Conc 30.6 g/dl (32-36); Mean Corpuscular Hemoglobin 30.6 pg (26-34); Mean Platelet Volume 8.9 fl (7.4-10.4); Platelet Count Result 497 k/mm3 (150-375); Red Blood Count 3.01 M/mm3 (4.2-5.4); Red Cell Distribution Width 15.9 % (11.5-14.5); White Blood Count 14.6 K/mm3 (4.5-10.0)
[2020-07-29 11:36] LABS: Anion Gap 5 mmol/L (8-16); Blood Urea Nitrogen 13 mg/dL (7-17); Calcium 9.8 mg/dL (8.4-10.2); Carbon Dioxide 30 mmol/L (22-30); Chloride 107 mmol/L (98-107); Estimated Glomerular Filt Rate > 60; Glucose 83 mg/dL (65-105); Potassium 3.8 mmol/L (3.4-5.0); Sodium 142 mmol/L (137-145)
== END 2020-07-29 10:56 | disposition home or self-care (01) ==
PROVIDERS: PCP Family Medicine; Visit Provider Surgery Plastic and Reconstructive Surgery
DX: R42 Dizziness and giddiness (principal)
CPT/HCPCS: 36415; 80048; 85027

== ENCOUNTER 2020-08-01 11:32 | Outpatient (CLI) | payer BC, SELFPAY ==
[2020-08-01 11:45] LABS: Hematocrit 26.9 % (37.0-47.0); Hemoglobin 8.2 g/dL (12.0-15.0); Mean Corpuscular HGB Conc 30.5 g/dl (32-36); Mean Corpuscular Hemoglobin 30.5 pg (26-34); Mean Platelet Volume 8.7 fl (7.4-10.4); Platelet Count Result 490 k/mm3 (150-375); Red Blood Count 2.69 M/mm3 (4.2-5.4); Red Cell Distribution Width 15.9 % (11.5-14.5); White Blood Count 16.3 K/mm3 (4.5-10.0)
[2020-08-01 11:56] LABS: Albumin Level 3.2 g/dL (3.5-5.1); Anion Gap 4 mmol/L (8-16); Blood Urea Nitrogen 17 mg/dL (7-17); Calcium 9.2 mg/dL (8.4-10.2); Carbon Dioxide 27 mmol/L (22-30); Chloride 107 mmol/L (98-107); Estimated Glomerular Filt Rate > 60; Glucose 90 mg/dL (65-105); Potassium 4.1 mmol/L (3.4-5.0); Sodium 138 mmol/L (137-145)
[2020-08-01 12:03] LABS: Prealbumin 13.7 mg/dL (17.6-36.0)
== END 2020-08-01 11:33 | disposition home or self-care (01) ==
PROVIDERS: PCP Family Medicine; Visit Provider Surgery Plastic and Reconstructive Surgery
DX: R42 Dizziness and giddiness (principal)
CPT/HCPCS: 36415; 80048; 82040; 84134; 85027

== ENCOUNTER 2020-08-02 02:07 | Day surgery (SDC) | payer OTHER, SELFPAY ==
[2020-08-01 15:15] VITALS: BMI 31.1
[2020-08-02] VITALS (8 sets, daily range): BP systolic 114–137; BP diastolic 55–77; PULSE 57–85; RESP 14–19; TEMP 36.6–36.8; O2SAT 95–100; BMI 31.6
[2020-08-02] MEDS: LACTATED RINGERS 1,000 ML 30 ML IV CONT ×2 (15:56→19:26)
--- NOTE | 2020-08-02 15:58 | WPDANESEPPF ---
Anes - Initial Pre Proc Eval Procedure: Operation Date: 08/02/20 17:00 Proposed Procedures p Post Exploration Abdominal Wound Wash Out - Ronnie Mosquera MD Date/Time: 08/02/20 15:58 Surgeon: Ronnie Mosquera MD Pre Op Diagnosis: wound washout Patient Data Age: 39 Gender: F Height: 1.66 m Weight: 87.4 kg Last Vital Signs Temp 36.8 C 08/02/20 15:26 Pulse 78 08/02/20 15:26 Resp 16 08/02/20 15:26 BP 137/68 08/02/20 15:26 Pulse Ox 99 08/02/20 15:26 Allergies Allergy/AdvReac Type Severity Reaction Status Date / Time No Known Allergies Allergy Mild Verified 08/02/20 15:07 Home Medications Medication Instructions Recorded Confirmed Type multivitamin [Daily Multi-Vitamin] 1 tablet PO DAILY 07/04/20 08/02/20 History esomeprazole magnesium 20 mg 20 mg PO DAILY #90 cap 07/15/20 08/02/20 Rx capsule,delayed release carisoprodol 350 mg PO Q6HR #15 tablet 07/21/20 08/02/20 Rx docusate sodium 100 mg PO Q12HR #30 cap 07/21/20 08/02/20 Rx acetaminophen 1,500 mg PO BID PRN 08/01/20 08/02/20 History ferrous sulfate 325 mg PO DAILY 08/01/20 08/02/20 History ibuprofen 800 mg PO Q8H PRN 08/01/20 08/02/20 History oxycodone-acetaminophen 5 mg-325 1 - 2 tablet PO Q6H PRN #15 tablet 08/01/20 08/02/20 Rx mg tablet Patient hx anesthesia problems: none Family hx anesthesia problems: none PMFSH Past Medical History Medical History Arthralgia of temporomandibular joint, unspecified side BMI 27.0-27.9,adult Dietary counseling and surveillance (10/01/16) Cristy Blas infection Family history of colon cancer Irritable bowel syndrome with diarrhea Low vitamin B12 level Low vitamin D level Obesity Lexi-rectal abscess Pre-operative clearance Vaginal discharge Surgical History Surgical History Bariatric surgery status H/O adenoidectomy Family History Family History Father blood cancer Hypertension Malignant neoplasm of prostate Grandparent Carcinoma of colon Hypertension Malignant neoplasm of prostate Mother No problems noted. Sibling No problems noted. Other Family history of coronary artery disease Social History Social History Years smoked: 20 Smoking status: Former smoker Tobacco type: cigarettes Second hand tobacco smoke exposure: No Smoking end date: 04/12/20 Alcohol intake: never Substance use: never Substance use type: does not use Living arrangements: with family Additional occupation/education comments: provider Gender identity (if verbalized by the patient): Female Spiritual care concerns: No Anes - Eval Final PreProcedure Day of Procedure 08/02/20 15:58 Patient weight: obese Heart: regular rate and rhythm Lungs: clear to auscultation and normal air movement Airway: Mallampati scale class II Neurological: alert and oriented Last oral intake: >/= 8 hours ASA classification: II Emergent: no Anesthetic plan: proceed Anesthesia type and monitoring: general LMA Informed Consent: The patient's anesthetic plan and its attendant risks and benefits were discussed with the patient/family/POA. Questions were solicited and answers provided to the satisfaction of the patient/family/POA.
[2020-08-02 17:11] LABS: Hematocrit 25.5 % (37.0-47.0); Hemoglobin 7.7 g/dL (12.0-15.0); Mean Corpuscular HGB Conc 30.2 g/dl (32-36); Mean Corpuscular Hemoglobin 30.2 pg (26-34); Mean Platelet Volume 8.9 fl (7.4-10.4); Platelet Count Result 445 k/mm3 (150-375); Red Blood Count 2.55 M/mm3 (4.2-5.4); Red Cell Distribution Width 15.5 % (11.5-14.5); White Blood Count 11.9 K/mm3 (4.5-10.0)
--- NOTE | 2020-08-02 17:23 | WPDHPUPDATE1 ---
History and Physical Update Update Date/Time: 08/02/20 17:23 History and Physical has been reviewed, including an updated exam of the patient. There are NO changes in the patient's condition. Risks, benefits, and alternatives have been discussed and questions answered. Patient agrees to proceed with procedure. Will proceed with washout abdomen.
[2020-08-02] MEDS: ceFAZolin 2 GM/D5W 50 ML 2 GM/50 ML BAG IVPB (17:37)
[2020-08-02] MEDS: BUPIVACAINE HCL 0.5% PF 30 ML VIAL INFILTRATE (18:25)
[2020-08-02] MEDS: LIDO 1%/EPINEPHRINE 1:100,000 50 ML VIAL INFILTRATE (18:25)
[2020-08-02] MEDS: fentaNYL CITRATE INJ (*CRX) 100 MCG/2 ML VIAL 25 MCG IV PUSH ×2 (19:35→19:52)
--- NOTE | 2020-08-02 19:41 | SUR.PHASEI ---
1930- lower abd incision line from recent surgery is intact. surgery site to the left most side of abd incision. JENNIFER drain present, activated. dressings are dry and intact to right breast and left lower abd.
--- NOTE | 2020-08-02 19:43 | PM.PROC ---
Procedure Note - Detailed Date of procedure: 08/02/20 Pre-op diagnosis: wound washout Post-op diagnosis: same Procedure performed: 1. Washout debridement abdominal wound 2. Debridement washout right breast T junction wound Description of procedure: Preoperatively the risks, benefits, alternatives were discussed in extensive detail. I want her to be very realistic about the risks involved as well as expectations. We had a lengthy open-ended conversation with her and her answering all of their questions. We have reviewed there are hemoglobin. She says she is feeling well but still having significant drainage from the abdomen. She would like proceed with washout. All questions answered and consent obtained. They voiced understanding. She was taken to the operating room placed supine on the operating room table. Anesthesia was provided by anesthesiology and prepped and draped in a standard sterile fashion. During the prep I noted the T junction on the right breast had a 0.5 x 0.5 cm open wound. I saw no signs of infection. No exposed structures. We also noted that her bilateral arms were healing however slow to heal with slight areas of separation. 1% lidocaine and 0.5% Marcaine with epinephrine was 1st used anesthetize at the T junction. I debrided just was necessary. There was no exposed structure. The deep de-epithelialized flap was still protecting this area. I irrigated with triple antibiotic Betadine solution and closed with 3-0 nylon. 1% lidocaine and 0.5% Marcaine with epinephrine were used anesthetize along the incision. A 10 blade used to open from right of midline all the way lateral. I did explore and remove some of the progressive tension sutures to make sure I had good visualization. There was a degree of old hematoma there. Perhaps 150cc. I irrigated with 3 L on a Pulsavac as well as 3 L on TUR tubing. We monitored for strict hemostasis. There was no evidence of active bleeding after an extensive observation. I also used hemaderm on the open area prior to closing. At the beginning of the procedure she was able to lay flat. I did flexor slightly to take tension off the incision. I placed a 19 Jv drain which was brought out laterally. This was sutured into place with 3-0 nylon. I closed in many layers using 2-0 Vicryl followed by 3-0 strata fix in a running subcuticular 4-0 Monocryl and tissue glue. She was woken taken to the PACU without difficulty. All instrument sponge counts were correct at the end of the case. After the procedure when had a discussion with the about her nutritional status. He states she is concerned about gaining weight following the procedure. He states she has been taking a protein shake however the low carb and she has been doing a keto diet with low / no carbs. She was actively dieting pre-operatively. Surgeon: Ronnie Mosquera MD Estimated blood loss (mL): 15 Drains: Yes (19 Jv) Packing: No Pathology: none sent Complications: No immediate complications Condition: stable Disposition: PACU Findings: 150 cc of old blood. No evidence of active bleeding.
[2020-08-02] MEDS: oxyCODONE HCL (*CRX) 5 MG TAB IR PO (20:39)
--- NOTE | 2020-08-02 21:05 | SUR.PHASEII ---
INSTRUCTED PT AND HOW TO CARE FOR AND EMPTY/RECORD DRAINAGE FROM J-P DRAIN TO LEFT ABDOMEN.
== END 2020-08-02 21:06 | disposition home or self-care (01) ==
PROVIDERS: PCP Family Medicine; Visit Provider Surgery Plastic and Reconstructive Surgery
PROC: (CPT 11042; principal; 2020-08-02 17:00)
PROC: (CPT 11042; 2020-08-02 17:00)
DX: T81.31XA Disruption of external operation (surgical) wound, not elsewhere classified, initial encounter (principal); L76.34 Postprocedural seroma of skin and subcutaneous tissue following other procedure; Y83.8 Other surgical procedures as the cause of abnormal reaction of the patient, or of later complication, without mention of misadventure at the time of the procedure; D64.9 Anemia, unspecified; Z98.84 Bariatric surgery status; Z87.891 Personal history of nicotine dependence; E66.9 Obesity, unspecified; Z68.31 Body mass index [BMI] 31.0-31.9, adult
CPT/HCPCS: 11042; 10140; 36415; 85027; A9270; J0690; J1100; J1580; J2250; J2405; J2704; J3010; J7120

== ENCOUNTER 2020-08-07 09:54 | Outpatient (CLI) | payer BC, SELFPAY ==
[2020-08-07 10:34] LABS: Hematocrit 26.7 % (37.0-47.0); Hemoglobin 7.8 g/dL (12.0-15.0); Mean Corpuscular HGB Conc 29.2 g/dl (32-36); Mean Corpuscular Hemoglobin 29.1 pg (26-34); Mean Corpuscular Volume 99.6 fl (80-100); Mean Platelet Volume 8.7 fl (7.4-10.4); Platelet Count Result 572 k/mm3 (150-375); Red Blood Count 2.68 M/mm3 (4.2-5.4); Red Cell Distribution Width 15.6 % (11.5-14.5)
[2020-08-07 10:44] LABS: Albumin Level 3.1 g/dL (3.5-5.1); Anion Gap 2 mmol/L (8-16); Blood Urea Nitrogen 14 mg/dL (7-17); Calcium 9.6 mg/dL (8.4-10.2); Carbon Dioxide 32 mmol/L (22-30); Chloride 106 mmol/L (98-107); Estimated Glomerular Filt Rate > 60; Glucose 87 mg/dL (65-105); Potassium 4.3 mmol/L (3.4-5.0); Sodium 140 mmol/L (137-145)
[2020-08-07 10:51] LABS: Prealbumin 15.3 mg/dL (17.6-36.0)
== END 2020-08-07 09:55 | disposition home or self-care (01) ==
PROVIDERS: PCP Family Medicine; Visit Provider Surgery Plastic and Reconstructive Surgery
DX: R42 Dizziness and giddiness (principal)
CPT/HCPCS: 36415; 80048; 82040; 84134; 85027

== ENCOUNTER 2020-08-12 16:42 | Outpatient (CLI) | payer BC, SELFPAY ==
[2020-08-12 17:00] LABS: Basophils Absolute Auto 0.1 K/mm3 (0.0-0.1); Basophils Percent Auto 0.6 % (0.2-1.2); Eosinophils Absolute Auto 0.2 K/mm3 (0-0.3); Eosinophils Percent Auto 2.1 % (0-4.4); Hematocrit 30.7 % (37.0-47.0); Immature Granulocyte Absolute 0.22 K/mm3 (0.00-0.031); Immature Granulocyte Percent A 1.9 % (0-0.5); Lymphocytes Absolute Auto 1.83 K/mm3 (0.9-3.2); Lymphocytes Percent Auto 15.9 % (18.3-44.2); Mean Corpuscular HGB Conc 29.3 g/dl (32-36); Mean Corpuscular Hemoglobin 29.1 pg (26-34); Mean Corpuscular Volume 99.4 fl (80-100); Mean Platelet Volume 8.5 fl (7.4-10.4); Monocytes Absolute Auto 0.8 K/mm3 (0.1-0.6); Monocytes Percent Auto 6.5 % (2.6-8.5); Neutrophils Absolute Auto 8.4 K/mm3 (1.3-6.7); Platelet Count Result 551 k/mm3 (150-375); Red Blood Count 3.09 M/mm3 (4.2-5.4); Red Cell Distribution Width 16.4 % (11.5-14.5); White Blood Count 11.5 K/mm3 (4.5-10.0)
[2020-08-12 17:16] LABS: Albumin Level 3.4 g/dL (3.5-5.1)
[2020-08-12 17:17] LABS: Anisocytosis 2+ (NORMAL); Hypochromasia 1+ (NORMAL); Platelet Estimate Increased (Adequate)
== END 2020-08-12 16:43 | disposition home or self-care (01) ==
LOC: ANHLAB 16:44
PROVIDERS: PCP Family Medicine; Visit Provider Family Medicine
DX: E46 Unspecified protein-calorie malnutrition (principal); D64.9 Anemia, unspecified
CPT/HCPCS: 36415; 82040; 84155; 85025

== ENCOUNTER 2020-08-20 16:50 | Outpatient (CLI) | payer BC, SELFPAY ==
[2020-08-20 17:32] LABS: Hematocrit 32.3 % (37.0-47.0); Hemoglobin 9.8 g/dL (12.0-15.0); Mean Corpuscular HGB Conc 30.3 g/dl (32-36); Mean Corpuscular Hemoglobin 28.8 pg (26-34); Mean Platelet Volume 8.5 fl (7.4-10.4); Platelet Count Result 426 k/mm3 (150-375); Red Cell Distribution Width 16.9 % (11.5-14.5); White Blood Count 12.2 K/mm3 (4.5-10.0)
[2020-08-20 17:50] LABS: Albumin Level 3.7 g/dL (3.5-5.1); Anion Gap 6 mmol/L (8-16); Blood Urea Nitrogen 21 mg/dL (7-17); Calcium 10.1 mg/dL (8.4-10.2); Carbon Dioxide 29 mmol/L (22-30); Chloride 105 mmol/L (98-107); Estimated Glomerular Filt Rate > 60; Glucose 90 mg/dL (65-105); Potassium 3.8 mmol/L (3.4-5.0); Sodium 140 mmol/L (137-145)
[2020-08-20 17:58] LABS: Prealbumin 27.6 mg/dL (17.6-36.0)
[2020-08-20 18:23] LABS: Iron 80 ug/dL (37-170)
== END 2020-08-20 16:51 | disposition home or self-care (01) ==
LOC: ANHLAB 16:50
PROVIDERS: PCP Family Medicine; Visit Provider Surgery Plastic and Reconstructive Surgery
DX: E46 Unspecified protein-calorie malnutrition (principal)
CPT/HCPCS: 36415; 80048; 82040; 83540; 84134; 84425; 85027

== ENCOUNTER 2020-09-30 16:32 | Outpatient (CLI) | payer BC, SELFPAY ==
[2020-09-30 16:47] LABS: Hematocrit 40.6 % (37.0-47.0); Hemoglobin 12.8 g/dL (12.0-15.0)
[2020-09-30 16:59] LABS: Albumin Level 4.3 g/dL (3.5-5.1)
[2020-09-30 18:59] LABS: Iron 71 ug/dL (37-170)
[2020-09-30 19:09] LABS: Percent Iron Saturation 21 % (20-50)
== END 2020-09-30 16:33 | disposition home or self-care (01) ==
LOC: ANHLAB 16:35
PROVIDERS: PCP Family Medicine; Visit Provider Family Medicine
DX: E46 Unspecified protein-calorie malnutrition (principal); D64.9 Anemia, unspecified
CPT/HCPCS: 36415; 82040; 83540; 83550; 84155; 85014; 85018

== ENCOUNTER 2021-04-01 09:28 | Outpatient (CLI) | payer BC, SELFPAY ==
[2021-04-01 10:12] LABS: Anion Gap 6 mmol/L (8-16); Blood Urea Nitrogen 13 mg/dL (7-17); Carbon Dioxide 29 mmol/L (22-30); Chloride 100 mmol/L (98-107); Estimated Glomerular Filt Rate > 60; Glucose 84 mg/dL (65-110); Potassium 4.2 mmol/L (3.4-5.0); Sodium 135 mmol/L (137-145)
[2021-04-01 10:13] LABS: Hematocrit 40.9 % (37.0-47.0); Hemoglobin 13.6 g/dL (12.0-15.0); Mean Corpuscular HGB Conc 33.3 g/dl (32-36); Mean Corpuscular Hemoglobin 32.7 pg (26-34); Mean Corpuscular Volume 98.3 fl (80-100); Mean Platelet Volume 9.3 fl (7.4-10.4); Platelet Count Result 401 k/mm3 (150-375); Red Blood Count 4.16 M/mm3 (4.2-5.4); Red Cell Distribution Width 11.9 % (11.5-14.5); White Blood Count 10.4 K/mm3 (4.5-10.0)
== END 2021-04-01 09:29 | disposition home or self-care (01) ==
PROVIDERS: PCP Family Medicine; Visit Provider Family Medicine
DX: D64.9 Anemia, unspecified (principal)
CPT/HCPCS: 36415; 80048; 85027

== ENCOUNTER 2021-05-30 09:45 | Outpatient (CLI) | payer BC, SELFPAY ==
[2021-05-30 10:08] LABS: Hematocrit 42.8 % (37.0-47.0); Hemoglobin 14.1 g/dL (12.0-15.0); Mean Corpuscular HGB Conc 32.9 g/dl (32-36); Mean Corpuscular Hemoglobin 32.9 pg (26-34); Mean Corpuscular Volume 99.8 fl (80-100); Mean Platelet Volume 9.6 fl (7.4-10.4); Platelet Count Result 309 k/mm3 (150-375); Red Blood Count 4.29 M/mm3 (4.2-5.4); Red Cell Distribution Width 12.1 % (11.5-14.5); White Blood Count 10.1 K/mm3 (4.5-10.0)
[2021-05-30 10:40] LABS: Anion Gap 4 mmol/L (8-16); Blood Urea Nitrogen 17 mg/dL (7-17); Calcium 10.3 mg/dL (8.4-10.2); Carbon Dioxide 30 mmol/L (22-30); Chloride 103 mmol/L (98-107); Estimated Glomerular Filt Rate > 60; Glucose 94 mg/dL (65-110); Potassium 4.6 mmol/L (3.4-5.0); Sodium 137 mmol/L (137-145)
== END 2021-05-30 09:46 | disposition home or self-care (01) ==
PROVIDERS: PCP Family Medicine; Visit Provider Nurse Practitioner Family
DX: E87.1 Hypo-osmolality and hyponatremia (principal); D72.829 Elevated white blood cell count, unspecified
CPT/HCPCS: 36415; 80048; 85027

== ENCOUNTER 2021-06-13 13:58 | Outpatient (CLI) | payer BC, SELFPAY ==
[2021-06-13 14:26] LABS: Basophils Absolute Auto 0.1 K/mm3 (0.0-0.1); Basophils Percent Auto 0.7 % (0.2-1.2); Eosinophils Absolute Auto 0.1 K/mm3 (0-0.3); Eosinophils Percent Auto 1.3 % (0-4.4); Hematocrit 38.4 % (37.0-47.0); Hemoglobin 12.5 g/dL (12.0-15.0); Immature Granulocyte Absolute 0.05 K/mm3 (0.00-0.031); Immature Granulocyte Percent A 0.5 % (0-0.5); Lymphocytes Absolute Auto 2.47 K/mm3 (0.9-3.2); Lymphocytes Percent Auto 23.8 % (18.3-44.2); Mean Corpuscular HGB Conc 32.6 g/dl (32-36); Mean Corpuscular Hemoglobin 32.5 pg (26-34); Mean Corpuscular Volume 99.7 fl (80-100); Mean Platelet Volume 9.5 fl (7.4-10.4); Monocytes Absolute Auto 0.6 K/mm3 (0.1-0.6); Monocytes Percent Auto 6.2 % (2.6-8.5); Neutrophils Percent Auto 67.5 % (45.5-73.1); Platelet Count Result 281 k/mm3 (150-375); Red Blood Count 3.85 M/mm3 (4.2-5.4); Red Cell Distribution Width 12.1 % (11.5-14.5); White Blood Count 10.4 K/mm3 (4.5-10.0)
[2021-06-13 14:36] LABS: Anion Gap 6 mmol/L (8-16); Blood Urea Nitrogen 21 mg/dL (7-17); Calcium 9.5 mg/dL (8.4-10.2); Carbon Dioxide 29 mmol/L (22-30); Chloride 105 mmol/L (98-107); Estimated Glomerular Filt Rate > 60; Glucose 90 mg/dL (65-110); Potassium 4.2 mmol/L (3.4-5.0); Sodium 140 mmol/L (137-145)
== END 2021-06-13 13:59 | disposition home or self-care (01) ==
LOC: ANHLAB 14:00
PROVIDERS: PCP Family Medicine; Visit Provider Physician Assistant Medical
DX: E87.1 Hypo-osmolality and hyponatremia (principal); D72.829 Elevated white blood cell count, unspecified
CPT/HCPCS: 36415; 80048; 85025

== ENCOUNTER 2023-02-16 08:38 | Outpatient (CLI) | payer BC, SELFPAY ==
[2023-02-16 09:32] LABS: Alanine Aminotransferase 20 U/L (6-35); Alkaline Phosphatase 87 U/L (38-126); Anion Gap 3 mmol/L (8-16); Aspartate Amino Transferase 27 U/L (14-36); Bilirubin,Total 0.6 mg/dL (0.2-1.3); Blood Urea Nitrogen 15 mg/dL (7-17); Calcium 9.6 mg/dL (8.4-10.2); Carbon Dioxide 29 mmol/L (22-30); Chloride 103 mmol/L (98-107); Estimated Glomerular Filt Rate > 60; Glucose 84 mg/dL (65-110); Potassium 4.1 mmol/L (3.4-5.0); Sodium 135 mmol/L (137-145)
[2023-02-16 10:08] LABS: Creatinine Urine 67.5 mg/dL
[2023-02-16 12:15] LABS: MALB Creatinine Ratio < 8.9 mg/g (0-30); Microalbumin Urine Random < 6.0 mg/L (0-16.7)
== END 2023-02-16 08:39 | disposition home or self-care (01) ==
LOC: ANHLAB 08:39
PROVIDERS: PCP Family Medicine; Visit Provider Nurse Practitioner Family
DX: R80.9 Proteinuria, unspecified (principal); R77.0 Abnormality of albumin
CPT/HCPCS: 36415; 80053; 82043

== ENCOUNTER 2023-02-18 09:03 | Outpatient (CLI) | payer BC, SELFPAY ==
[2023-02-21 10:50] LABS: Insulin Level Total 4.7 uIU/mL (<=18.4)
[2023-02-22 14:35] LABS: Testosterone Free 1.5 pg/mL (0.1-6.4); Testosterone Total 19 ng/dL (2-45)
== END 2023-02-18 09:04 | disposition home or self-care (01) ==
LOC: ANHLAB 09:06
PROVIDERS: PCP Family Medicine; Visit Provider Physician Assistant Medical
DX: R63.5 Abnormal weight gain (principal); Z68.33 Body mass index [BMI] 33.0-33.9, adult
CPT/HCPCS: 36415; 83525; 84402; 84403; 84443

== ENCOUNTER 2023-03-23 08:37 | Outpatient (CLI) | payer BC, SELFPAY ==
[2023-03-23 09:23] LABS: Anion Gap 8 mmol/L (8-16); Blood Urea Nitrogen 19 mg/dL (7-17); Calcium 9.8 mg/dL (8.4-10.2); Carbon Dioxide 26 mmol/L (22-30); Chloride 105 mmol/L (98-107); Estimated Glomerular Filt Rate > 60; Glucose 74 mg/dL (65-110); Potassium 4.3 mmol/L (3.4-5.0); Sodium 139 mmol/L (137-145)
== END 2023-03-23 08:38 | disposition home or self-care (01) ==
LOC: ANHLAB 08:38
PROVIDERS: PCP Family Medicine; Visit Provider Nurse Practitioner Family
DX: E87.1 Hypo-osmolality and hyponatremia (principal); N28.9 Disorder of kidney and ureter, unspecified
CPT/HCPCS: 36415; 80048

== ENCOUNTER 2023-06-17 08:45 | Outpatient (CLI) | payer BC, SELFPAY ==
[2023-06-17 09:59] LABS: Anion Gap 3 mmol/L (8-16); Blood Urea Nitrogen 14 mg/dL (7-17); Calcium 9.8 mg/dL (8.4-10.2); Carbon Dioxide 30 mmol/L (22-30); Chloride 104 mmol/L (98-107); Estimated Glomerular Filt Rate > 60; Glucose 83 mg/dL (65-110); Sodium 137 mmol/L (137-145)
== END 2023-06-17 08:46 | disposition home or self-care (01) ==
LOC: ANHLAB 08:47
PROVIDERS: PCP Family Medicine; Visit Provider Nurse Practitioner Family
DX: N28.9 Disorder of kidney and ureter, unspecified (principal)
CPT/HCPCS: 36415; 80048

== ENCOUNTER 2023-10-20 01:48 | Day surgery (SDC) | payer BC, SELFPAY ==
[2023-10-07 14:18] VITALS: BMI 33.3
[2023-10-20 09:58] VITALS: BP 133/81; PULSE 57; RESP 16; TEMP 36.4; O2SAT 100; BMI 34.2
[2023-10-20] MEDS: LACTATED RINGERS 1,000 ML 150 ML IV CONT (10:07)
--- NOTE | 2023-10-20 10:08 | WPDANESEPPF ---
Anes - Initial Pre Proc Eval Procedure: Operation Date: 10/20/23 11:00 Proposed Procedures p Esophagogastroduodenoscopy - Maulik Pruitt MD Date/Time: 10/20/23 10:08 Surgeon: Maulik Pruitt MD Pre Op Diagnosis: GERD Patient Data Age: 43 Gender: F Height: 1.65 m Weight: 93.3 kg Last Vital Signs Temp 97.6 F 10/20/23 09:58 Pulse 57 L 10/20/23 09:58 Resp 16 10/20/23 09:58 BP 133/81 10/20/23 09:58 Pulse Ox 100 10/20/23 09:58 O2 Del Method Room Air 10/20/23 09:58 Allergies Allergy/AdvReac Type Severity Reaction Status Date / Time No Known Allergies Allergy Mild Verified 10/20/23 09:56 Home Medications Medication Instructions Recorded Confirmed Type multivitamin (Daily Multi-Vitamin 1 tablet PO DAILY 07/04/20 10/07/23 History tablet) hydroxyzine HCl 10 mg tablet 10 mg PO TID PRN panic attacks #20 08/17/22 10/07/23 Rx tabs hydrochlorothiazide 12.5 mg tablet 12.5 mg PO DAILY #90 tabs 01/06/23 10/07/23 Rx levonorgestrel 21 mcg/24 hr (up to 1 device intrauterine ONCE 06/30/23 10/07/23 History 8 years) 52 mg intrauterine device (Mirena) buspirone 7.5 mg tablet 7.5 mg PO BID #180 tabs 09/03/23 10/07/23 Rx semaglutide (weight loss) 0.25 0.25 mg (0.5 mL) subcut WEEKLY #2 10/04/23 10/20/23 Rx mg/0.5 mL subcutaneous pen mL injector (Wegovy) Prilosec 1 tab-cap PO DAILY 10/07/23 10/20/23 History Patient hx anesthesia problems: none Family hx anesthesia problems: none Results Review: All pre-operative results and documents have been reviewed as part of the pre-operative evaluation. [facility] Past Medical History Medical History (Updated 10/04/23 @ 11:04 by RAUDEL Larsen) Anemia Arthralgia of temporomandibular joint, unspecified side Breast ptosis Dietary counseling and surveillance (10/01/16) Cristy Blas infection Family history of colon cancer History of COVID-19 Irritable bowel syndrome with diarrhea Low vitamin B12 level Low vitamin D level Micromastia Obesity Lexi-rectal abscess Pre-operative clearance Screening for diabetes mellitus Screening for lipid disorders Screening for thyroid disorder Screening mammogram for breast cancer Skin laxity Vac strep pneumoniae-flu Vaginal discharge Surgical History Surgical History (Updated 10/04/23 @ 11:04 by RAUDEL Larsen) Bariatric surgery status H/O adenoidectomy H/O gynecological procedure Mirena IUD 02/10/2021 History of delivery x 2 History of cosmetic surgery tummy tuck/breast augmentation/arms Family History Family History Father blood cancer Hypertension Malignant neoplasm of prostate Grandparent Carcinoma of colon Hypertension Malignant neoplasm of prostate Mother No problems noted. Sibling No problems noted. Other Family history of coronary artery disease Social History Social History Years smoked: 20 Smoking status: Light tobacco smoker Tobacco type: cigarettes Second hand tobacco smoke exposure: No Smoking end date: 04/12/20 Alcohol intake: current Drinks per week: 7 Alcohol use details: TWICE/MONTH Substance use: current Substance use type: does not use Other substance usage details: THC edibles Do You Feel Safe in your Home?: Yes Lack of Transportation: No Lack of Food: Never True Current Housing: I Have Housing Concerned About Future Housing: No Difficulty Paying Gas/Electric Bills: No Difficulty Paying for Meds: No Currently Unemployed: No Education: High School Diploma/GED Difficulty w/ Childcare or Family Care: No Living arrangements: with family Occupation/Education: occupation Additional occupation/education comments: provider-day care Gender identity (if verbalized by the patient): Female Spiritual care concerns
--- NOTE | 2023-10-20 10:40 | PM.HPGS ---
History of Present Illness History of Present Illness Consent: Risks, benefits, and alternatives have been discussed and questions answered. Patient agrees to proceed with procedure. Chief complaint: GERD Narrative: Estelle Klein is a 43 year old female with more symptomatic gerd despite prilosec, she says that when was using prevacid symptoms were better. Also had EGD just before gastric sleeve Review of Systems Review of Systems: All systems reviewed & are unremarkable except as noted in HPI and below PMFSH Past Medical History Medical History (Updated 10/04/23 @ 11:04 by RAUDEL Larsen) Anemia Arthralgia of temporomandibular joint, unspecified side Breast ptosis Dietary counseling and surveillance (10/01/16) Cristy Blas infection Family history of colon cancer History of COVID-19 Irritable bowel syndrome with diarrhea Low vitamin B12 level Low vitamin D level Micromastia Obesity Lexi-rectal abscess Pre-operative clearance Screening for diabetes mellitus Screening for lipid disorders Screening for thyroid disorder Screening mammogram for breast cancer Skin laxity Vac strep pneumoniae-flu Vaginal discharge Surgical History Surgical History (Updated 10/04/23 @ 11:04 by RAUDEL Larsen) Bariatric surgery status H/O adenoidectomy H/O gynecological procedure Mirena IUD 02/10/2021 History of delivery x 2 History of cosmetic surgery tummy tuck/breast augmentation/arms Family History Family History Father blood cancer Hypertension Malignant neoplasm of prostate Grandparent Carcinoma of colon Hypertension Malignant neoplasm of prostate Mother No problems noted. Sibling No problems noted. Other Family history of coronary artery disease Social History Social History Years smoked: 20 Smoking status: Light tobacco smoker Tobacco type: cigarettes Second hand tobacco smoke exposure: No Smoking end date: 04/12/20 Alcohol intake: current Drinks per week: 7 Alcohol use details: TWICE/MONTH Substance use: current Substance use type: does not use Other substance usage details: THC edibles Do You Feel Safe in your Home?: Yes Lack of Transportation: No Lack of Food: Never True Current Housing: I Have Housing Concerned About Future Housing: No Difficulty Paying Gas/Electric Bills: No Difficulty Paying for Meds: No Currently Unemployed: No Education: High School Diploma/GED Difficulty w/ Childcare or Family Care: No Living arrangements: with family Occupation/Education: occupation Additional occupation/education comments: provider-day care Gender identity (if verbalized by the patient): Female Spiritual care concerns: No Meds Home Medications and Allergies Home Medications Medication Instructions Recorded Confirmed Type multivitamin (Daily Multi-Vitamin 1 tablet PO DAILY 07/04/20 10/07/23 History tablet) hydroxyzine HCl 10 mg tablet 10 mg PO TID PRN panic attacks #20 08/17/22 10/07/23 Rx tabs hydrochlorothiazide 12.5 mg tablet 12.5 mg PO DAILY #90 tabs 01/06/23 10/07/23 Rx levonorgestrel 21 mcg/24 hr (up to 1 device intrauterine ONCE 06/30/23 10/07/23 History 8 years) 52 mg intrauterine device (Mirena) buspirone 7.5 mg tablet 7.5 mg PO BID #180 tabs 09/03/23 10/07/23 Rx semaglutide (weight loss) 0.25 0.25 mg (0.5 mL) subcut WEEKLY #2 10/04/23 10/20/23 Rx mg/0.5 mL subcutaneous pen mL injector (Wesulaiman) Prilosec 1 tab-cap PO DAILY 10/07/23 10/20/23 History Allergies Allergy/AdvReac Type Severity Reaction Status Date / Time No Known Allergies Allergy Mild Verified 10/20/23 09:56 Vital Signs Vital Signs - 24 hr 10/20/23 09:58 Temperature 97.6 F Pulse Rate 57 L Respiratory Rate 16 Blood Pressure 133/81 Pulse Oximetry 100 Oxygen
[2023-10-20] MEDS: BENZOCAINE (*SP) 60 ML SPRAY CAN (HURRICAINE) 1 SPRAY MUCOUS MEM (10:44)
[2023-10-20 10:51] VITALS: BP 124/75; PULSE 83; RESP 16; O2SAT 100
[2023-10-20 11:01] VITALS: BP 110/72; PULSE 74; RESP 16; O2SAT 100
[2023-10-20 11:10] VITALS: BP 114/78; PULSE 60; RESP 16; O2SAT 100
== END 2023-10-20 11:16 | disposition home or self-care (01) ==
PROVIDERS: PCP Family Medicine; Referring Provider Nurse Practitioner Family; Visit Provider Internal Medicine Gastroenterology
PROC: 0DJ08ZZ Inspection of Upper Intestinal Tract, Via Natural or Artificial Opening Endoscopic (ICD-10-PCS; CPT 43235; principal; 2023-10-20 11:00)
DX: K29.50 Unspecified chronic gastritis without bleeding (principal); K44.9 Diaphragmatic hernia without obstruction or gangrene; K21.9 Gastro-esophageal reflux disease without esophagitis; Z98.84 Bariatric surgery status; Z79.85 Long-term (current) use of injectable non-insulin antidiabetic drugs; Z87.891 Personal history of nicotine dependence; F12.90 Cannabis use, unspecified, uncomplicated
CPT/HCPCS: 43239; 88305; J2704; J7120

== ENCOUNTER 2024-03-02 15:50 | Outpatient (CLI) | payer BC, SELFPAY ==
--- NOTE | ~2024-03-02 | MM_ITS ---
EXAMINATION: MM scrn tracy implant BI w lore HISTORY: Screening mammogram TECHNIQUE: Craniocaudal and mediolateral oblique 3-D tomosynthesis images with implant displacement a nd synthetic 2-D images were generated. Craniocaudal and mediolateral oblique views of the breasts wi thout implant displacement were obtained using full field digital mammography. CAD analysis was submi tted and interpreted. COMPARISON: No prior mammogram is available for comparison at this institution. BREAST PARENCHYMAL COMPOSITION: There are scattered areas of fibroglandular density. FINDINGS: There is no evidence of suspicious mass, calcification, or architectural distortion to sugg est malignancy in either breast. There has been no suspicious interval change. IMPRESSION: No mammographic evidence of malignancy. Recommend routine screening mammography in one year. BI-RADS Category 1: Negative Reviewed, dictated and finalized at location . DSMAN
== END 2024-03-02 15:51 | disposition home or self-care (01) ==
PROVIDERS: PCP Family Medicine; Visit Provider Student in an Organized Health Care Education/Training Program
DX: Z12.31 Encounter for screening mammogram for malignant neoplasm of breast (principal)
CPT/HCPCS: 77063; 77067